=== PATIENT | male | born 1995 | race Caucasian/White ===

== ENCOUNTER 2018-12-15 12:55 | Inpatient (IN) | payer OTHER ==
[~2018-12-15] VITALS: Ht 170.2 cm; Wt 74.9 kg
[2018-12-15] MEDS ORDERED: SOD CHLORIDE 0.9% 1,000 ML IV STA (14:31)
--- NOTE | 2018-12-15 16:52 | ERD ---
ER Documentation Chief Complaint Chief Complaint LUQ abd pain since Thursday; diarrhea only today; hx of pancreatitis HPI 23-year-old male patient with a past medical history of type 1 diabetes and pancreatitis presents to the ED complaining of left upper quadrant abdominal pain since 5 days ago. Reports that he did have 2 alcoholic beverages 1 week ago. States that the pain did happen after he drank. States that he has had some soft stools, one episode of diarrhea, nonimmune quite nonbloody earlier today. Describes his pain is sharp and rates it an 8 out of 10. Reports that he is tried taking Gas-X, Tylenol with some mild relief. Reports that when he ate some fatty foods which consisted of pizza and pastrami sandwiches, it worsened his pain. Denies any nausea, vomiting, pain, shortness of breath, wheezing, constipation, dysuria. Reports that he usually takes about 60 units of insulin per day. ROS All systems reviewed and are negative except as per history of present illness. Allergies Allergies: Coded Allergies: No Known Allergy (Unverified , 12/15/18) PMhx/Soc Medical and Surgical Hx: pt denies Medical Hx, pt denies Surgical Hx Hx Alcohol Use: Yes Hx Substance Use: No Hx Tobacco Use: No Smoking Status: Never smoker FmHx Family History: No coronary disease Physical Exam Vitals Vital Signs Date Temp Pulse Resp B/P (MAP) Pulse Ox O2 O2 Flow FiO2 Time Delivery Rate 12/15/18 98.0 107 20 147/69 99 13:08 (95) Physical Exam Const: [id number], well-nourished. In no acute distress. Head: Atraumatic, normocephalic Eyes: Normal Conjunctiva without injection. No purulent discharge. ENT: Normal external ear, nose. Moist oropharynx without tonsillar exudates. Non-erythematous pharynx. Uvula midline. No drooling. No trismus. Neck: No cervical midline tenderness. Full range of motion. No meningismus. No cervical lymphadenopathy. No JVD. Resp: Clear to auscultation bilaterally. No wheezing, rhonchi, rales, or fuel efficient aircraft designer ckles. No accessory muscle use. No retractions. Cardio: Regular rate and rhythm. No murmurs, rubs or gallops. Abd: Soft, left upper quadrant tenderness, non distended. Normal bowel sounds. No palpable masses. No rebound tenderness. No guarding. Negative McBurney's point. Negative psoas sign. Negative obturator sign. Skin: No petechiae or rashes Back: No midline tenderness. No CVA tenderness. Ext: No cyanosis, or edema. Neur: Awake and alert. Normal gait. Normal coordination. Psych: Normal Mood and Affect Result Diagram: 12/15/18 1442 12/15/18 1442 Results 24 hrs Laboratory Tests Test 12/15/18 14:42 White Blood Count 7.3 10^3/ul Red Blood Count 4.47 10^6/ul Hemoglobin 14.0 g/dl Hematocrit 41.0 % Mean Corpuscular Volume 91.7 fl Mean Corpuscular Hemoglobin 31.3 pg Mean Corpuscular Hemoglobin Concent 34.1 g/dl Red Cell Distribution Width 13.7 % Platelet Count 254 10^3/UL Mean Platelet Volume 9.8 fl Immature Granulocytes % 0.400 % Neutrophils % 63.3 % Lymphocytes % 22.9 % Monocytes % 6.8 % Eosinophils % 5.5 % Basophils % 1.1 % Nucleated Red Blood Cells % 0.0 /100WBC Immature Granulocytes # 0.030 10^3/ul Neutrophils # 4.6 10^3/ul Lymphocytes # 1.7 10^3/ul Monocytes # 0.5 10^3/ul Eosinophils # 0.4 10^3/ul Basophils # 0.1 10^3/ul Nucleated Red Blood Cells # 0.0 10^3/ul Urine Color STRAW Urine Clarity CLEAR Urine pH 6.0 Urine Specific [place] 1.020 Urine Ketones NEGATIVE mg/dL Urine Nitrite NEGATIVE mg/dL Urine Bilirubin NEGATIVE mg/dL Urine Urobilinogen NEGATIVE mg/dL Urine Leukocyte Esterase NEGATIVE Pan/ul Urine Hemoglobin NEGATIVE mg/dL Urine Glucose 3+ mg/dL Urine Total Protein NEGATIVE mg/dl Sodium Level 141 mmol/L Potassium Level 4.2 mmol/L Chloride Level 100 mmol/L Carbon Dioxide Level 31 mmol/L Anion Gap 10 Blood Urea Nitrogen 9 mg/dl Creatinine 0.53 mg/dl Est Glomerular Filtrat Rate mL/min > 60 mL/min Glucose Level 295 mg/dl Calcium Level 9.8 mg/dl Total Bilirubin 1.3 mg/dl Direct Bilirubin 0.00 mg/dl Indirect Bilirubin 1.3 mg/dl Aspartate Amino Transf (AST/SGOT) 103 IU/L Alanine Aminotransferase (ALT/SGPT) 137 IU/L Alkaline Phosphatase 160 IU/L Total Protein 7.0 g/dl Albumin 3.9 g/dl Globulin 3.10 g/dl Albumin/Globulin Ratio 1.25 Lipase 3963 U/L Current Medications Medications Dose Sig/Crow Start Time Status Last (Trade) Ordered Route PRN Stop Time Admin Dose Reason Admin Sodium 1,000 ml @ Q1H STAT 12/15/18 DC 12/15/18 Chloride 1,000 mls/hr IV 14:31 14:52 12/15/18 15:30 Procedures/MDM 23-year-old male patient with a past medical history of type 1 diabetes, marino ncreatitis presents to the ED complaining of left upper quadrant abdominal pain. Patient is afebrile and nontoxic-appearing. Patient was further worked up with CBC, CMP, lipase, UA, gallbladder ultrasound. Patient's pain and symptoms have improved after treatment with 1 L of normal saline. CBC: No leukocytosis. No e/o of systemic infection. No e/o anemia. CMP: No e/o severe acidosis, alkalosis, renal failure, diabetic ketoacidosis, transaminitis noted. Glucose 295. Patient has an insulin pump. Lipase 3963 Urine: No leukocyte esterase, no nitrites, no hematuria. IMPRESSION: Hepatomegaly with diffuse fatty infiltration of the liver.. No evidence of gallstones. Diagnosis: Acute Pancreatitis secondary to alcoholism Gallbladder ultrasound did not show any cholelithiasis or choledocholithiasis. Discussed with my supervising physician, Dr. Shah who agreed with the admission plan. Admission was discussed with the patient and father. Both agreed with the admission plan. Patient did not want any pain medications at this time. Patient hemodynamically stable. Departure Diagnosis: Primary Impression: Pancreatitis Chronicity: acute Pancreatitis type: unspecified pancreatitis type Acute pancreatitis complication: unspecified Qualified Codes: K85.90 - Acute pancreatitis without necrosis or infection, unspecified Condition: LAURENCE Johansen PA-C Dec 15, 2018 16:52
--- NOTE | 2018-12-15 17:36 | EN ---
Date/Time of Note Date/Time of Note DATE: 12/15/18 TIME: 17:35 ER Progress Note I have discussed the patient along with the PA and/or INDUSTRIAL REHABILITATION CONSULTANT provider. I agree with the evaluation and plan of care. Please see their documentation for full ER course and evaluation. In short: Patient presents with abdominal pain, alcohol abuse history Assessment and plan: Laboratory testing consistent with acute pancreatitis. Possibly alcohol related. Gallbladder ultrasound unremarkable. The patient will be admitted for further management and workup. He was given IV fluids and is refusing pain medication. Accepting care team and consultations: I discussed the current laboratory data, diagnostic imaging and emergency care provided. Admitting team: Dr. Barnes Admitting team indication: Insurance directed CHYNA OWEN MD Dec 15, 2018 17:36
[2018-12-15] MEDS ORDERED: ACETAMINOPHEN 325 MG TAB PO PRN ×2 (18:00→18:30)
[2018-12-15] MEDS ORDERED: ONDANSETRON 4 MG INJ IV PRN ×2 (18:00→18:30)
[2018-12-15] MEDS ORDERED: SOD CHLORIDE 0.9% 1,000 ML IV SCH (18:18)
[2018-12-15] MEDS ORDERED: LORAZEPAM 2 MG INJ IV PRN (18:30)
[2018-12-15] MEDS ORDERED: NITROGLYCERIN (SL) 0.4 MG TAB SL PRN (18:30)
[2018-12-15] MEDS ORDERED: hydrALAzine 20 MG INJ IV PRN (18:30)
[2018-12-15] MEDS ORDERED: NACL 0.9% 3 ML SYG IV SCH (18:30)
[2018-12-15] MEDS ORDERED: MAGNESIUM HYDROXIDE 30ML CUP PO PRN (18:30)
[2018-12-15] MEDS ORDERED: morphine 2 MG INJ IV PRN (18:30)
[2018-12-15] MEDS ORDERED: ALBUTEROL/IPRATROPIUM (NEB) 3 ML AMP HHN PRN (18:30)
[2018-12-15] MEDS ORDERED: HYDROCODONE/APAP (5/325) TAB PO PRN (18:30)
[2018-12-15] MEDS ORDERED: DOCUSATE SODIUM 100 MG CAP PO PRN (18:30)
--- NOTE | 2018-12-15 19:42 | HP ---
DATE OF ADMISSION: 12/15/2018 IDENTIFICATION: This is a 23-year-old male. CHIEF COMPLAINT: Abdominal pain. HISTORY OF PRESENT ILLNESS: A 23-year-old male with past medical history of pancreatitis occurring o ne time in 2016, type 1 diabetes, using insulin pump who presents with abdominal pain. The patient d escribes the pain in the left upper quadrant area. It has been going on for the last 4 to 5 days. T he patient does admit to alcoholic beverages x2 that he drank 1 week ago and it appears that his pain did appear to occur shortly after he drank the alcohol. No fevers or chills. No nausea or vomiting . He did have one episode of diarrhea, but no constipation. The patient tried to take some Tylenol and Gas-X at home that only gave minimal relief. When he ate food, however, his pain seemed to get w orse and it also radiated mildly to the back. No chest pain or shortness of breath. When he came in today, he was found on labs with a lipase elevation of 3963 and his indirect bilirubin is slightly h igh 1.3, AST is a little high at 103 and ALT was 137, alkaline phosphatase is 160. Rest of his LFTs were normal. The patient stated when his pancreatitis occurred in 2015, he had to stay hospitalized for 4 to 5 days up in [facility]. At that time, it was thought that his pancreatitis was se condary to alcohol use at that time. PAST MEDICAL HISTORY: As stated above. ALLERGIES: NO KNOWN DRUG ALLERGIES. MEDICATIONS AT HOME: The patient does use insulin pump. PAST SURGICAL HISTORY: None. SOCIAL HISTORY: Again, occasional alcohol use. Denies any IV drug abuse or smoking history. FAMILY HISTORY: Noncontributory. PHYSICAL EXAMINATION: VITAL SIGNS: T-max 98.0, pulse 107, respirations 20, blood pressure 147/69, satting at 99% on room a ir. GENERAL: The patient is lying in bed, answering questions appropriately. No acute distress. Father at bedside. HEENT: Pupils are equal, round and reactive to light. Extraocular muscles are intact. NECK: Supple, no thyromegaly. LUNGS: Clear to auscultation bilaterally. CARDIOVASCULAR: S1 and S2 heard. No rubs or gallops. ABDOMEN: Soft. Mild tenderness to palpation in epigastric area, left upper quadrant area. No rebou nd or guarding. Normal bowel sounds. MUSCULOSKELETAL: No lower extremity edema bilaterally. NEUROLOGIC: No focal deficits. LABORATORY DATA: CBC is normal. Again, the basic metabolic panel is normal, although the glucose is 295. We mentioned the LFT results earlier and lipase again is 3963. UA shows only 3+ glucose, posi tive. The patient had a gallbladder ultrasound performed today that showed hepatomegaly with diffuse fatty liver infiltration, but no gallstones. ASSESSMENT AND PLAN: A 23-year-old male coming in with abdominal pain secondary to pancreatitis whic h is likely secondary to alcohol use. Also, has history of type 1 diabetes. 1. Abdominal pain. Again, likely secondary to alcohol-induced pancreatitis. Lipase 3963. Admit th e patient, keep him n.p.o., give him IV fluids, antiemetic medications. Followup TSH, A1c and lipid panel. Trend his lipase levels as well. Give him pain control medications as needed. 2. Type 1 diabetes. Follow up A1c. For now, the patient will continue to use his insulin pump and we will monitor sugars. If necessary, we will obtain endocrinology consult if his sugars are not con trolled, and/or in service educator. 3. Deep venous thrombosis prophylaxis, heparin subcutaneous. Dictated By: SANJAY VAUGHN Conf#: [id number] DID#: [id number]
[2018-12-15] MEDS ORDERED: INSULIN ASPART [NOVOLOG] 3 ML PEN SC SCH (21:00)
[2018-12-15] MEDS: HEPARIN 5,000 UNIT/1 ML VIAL SC SCH (21:00)
[2018-12-15] MEDS: DEXTROSE 5%-0.45% NACL 1,000 ML IV SCH (21:52)
[2018-12-15 22:06] VITALS: Ht 170.2 cm; Wt 74.9 kg
[2018-12-16] MEDS: ACCU-CHEK XX SCH ×6 (01:23→21:00)
[2018-12-16] MEDS ORDERED: GLUCOSE GEL 15 GRAM TUBE PO PRN ×2 (01:30)
[2018-12-16] MEDS ORDERED: GLUCOSE GEL 15 GRAM TUBE BUCCAL PRN (01:30)
[2018-12-16] MEDS ORDERED: DEXTROSE 50% 50 ML SYRINGE IV PRN (01:30)
[2018-12-16] MEDS ORDERED: GLUCAGON 1 MG INJ IM PRN (01:30)
[2018-12-16] MEDS: DEXTROSE 50% 50 ML SYRINGE IV PRN ×2 (01:53→06:23)
[2018-12-16] MEDS ORDERED: ACCU-CHEK XX SCH (02:00)
[2018-12-16 02:13] VITALS: BP 110/70; PULSE 97; RESP 20
[2018-12-16] MEDS: DEXTROSE 5%-0.45% NACL 1,000 ML IV SCH ×2 (06:57→16:48)
[2018-12-16 08:04] VITALS: BP 109/72; PULSE 86; RESP 16
[2018-12-16] MEDS: HEPARIN 5,000 UNIT/1 ML VIAL SC SCH (09:00)
--- NOTE | 2018-12-16 11:57 | PN ---
Date/Time of Note Date/Time of Note DATE: 12/16/18 TIME: 11:53 Assessment/Plan VTE Prophylaxis Risk score (from Nsg)>0 risk: 0 SCD applied (from Ns): No SCD contraindicated: other Pharmacological prophylaxis: NA/contraindicated Pharm contraindication: low risk/ambulating Lines/Catheters IV Catheter Type (from [facility]): Saline Lock Assessment/Plan Hospital Course S: Patient has less abdominal pain, had some slightly low blood sugars overnight but asymptomatic otherwise. O: VS-see below PHYSICAL EXAMINATION: GENERAL: lying in bed, answering questions appropriately. No acute distress. Father at bedside. HEENT: Pupils are equal, round and reactive to light. Extraocular muscles are intact. NECK: Supple, no thyromegaly. LUNGS: Clear to auscultation bilaterally. CARDIOVASCULAR: S1 and S2 heard. No rubs or gallops. ABDOMEN: Soft. Mild tenderness to palpation in epigastric area, left upper quadrant area. No rebound or guarding. Normal bowel sounds. MUSCULOSKELETAL: No lower extremity edema bilaterally. NEUROLOGIC: No focal deficits. ASSESSMENT AND PLAN: 23-year-old male coming in with abdominal pain secondary to pancreatitis which is likely secondary to alcohol use, with prior history of type 1 diabetes. 1. Abdominal pain -improving, secondary to alcohol-induced pancreatitis. Lipase 3963 -> 1400. -Will continue n.p.o. until this evening and at that time we will cautiously start liquid diet and advance as tolerated at that time -For now continue IV fluids, antiemetic medications - Trend his lipase levels. - pain control medications as needed. 2. Type 1 diabetes A1c = 9.5, sugars in the lower normal range for now - the patient will continue to use his insulin pump and we will monitor sugars. - If necessary, we will obtain endocrinology consult if his sugars are not controlled, and/or nurses educator. Result Diagram: 12/16/18 0435 12/16/18 0435 Results 24hrs Laboratory Tests Test 12/15/18 14:42 12/15/18 21:27 12/16/18 01:17 12/16/18 01:18 White Blood Count 7.3 Red Blood Count 4.47 L Hemoglobin 14.0 Hematocrit 41.0 L Mean Corpuscular 91.7 Volume Mean Corpuscular 31.3 Hemoglobin Mean Corpuscular 34.1 Hemoglobin Concent Red Cell 13.7 Distribution Width Platelet Count 254 Mean Platelet Volume 9.8 Immature 0.400 Granulocytes % Neutrophils % 63.3 Lymphocytes % 22.9 Monocytes % 6.8 Eosinophils % 5.5 Basophils % 1.1 Nucleated Red Blood 0.0 Cells % Immature 0.030 Granulocytes # Neutrophils # 4.6 Lymphocytes # 1.7 Monocytes # 0.5 Eosinophils # 0.4 Basophils # 0.1 Nucleated Red Blood 0.0 Cells # Prothrombin Time 12.5 Prothrombin Time 1.0 Ratio INR International 0.92 Normalized Ratio Activated 24.1 Partial Thromboplast Time Urine Color STRAW Urine Clarity CLEAR Urine pH 6.0 Urine Specific 1.020 [place] Urine Ketones NEGATIVE Urine Nitrite NEGATIVE Urine Bilirubin NEGATIVE Urine Urobilinogen NEGATIVE Urine Leukocyte NEGATIVE Esterase Urine Hemoglobin NEGATIVE Urine Glucose 3+ H Urine Total Protein NEGATIVE Sodium Level 141 Potassium Level 4.2 Chloride Level 100 Carbon Dioxide Level 31 Anion Gap 10 Blood Urea Nitrogen 9 Creatinine 0.53 L Est Glomerular > 60 Filtrat Rate mL/min Glucose Level 295 H Calcium Level 9.8 Total Bilirubin 1.3 Direct Bilirubin 0.00 Indirect Bilirubin 1.3 H Aspartate Amino 103 H Transf (AST/SGOT) Alanine 137 H Aminotransferase (AL T/SGPT) Alkaline Phosphatase 160 H Total Protein 7.0 Albumin 3.9 Globulin 3.10 Albumin/Globulin 1.25 Ratio Lipase 3963 H Free Thyroxine 0.97 Ethyl Alcohol Level < 10.0 H Bedside Glucose 83 53 L 59 L Test 12/16/18 01:46 12/16/18 02:00 12/16/18 04:26 12/16/18 04:35 Bedside Glucose 141 104 84 White Blood Count 7.3 Red Blood Count 4.11 L Hemoglobin 12.6 L Hematocrit 38.4 L Mean Corpuscular 93.4 Volume Mean Corpuscular 30.7 Hemoglobin Mean Corpuscular 32.8 Hemoglobin Concent Red Cell 14.0 Distribution Width Platelet Count 245 Mean Platelet Volume 10.1 Immature 0.400 Granulocytes % Neutrophils % 55.1 Lymphocytes % 26.3 Monocytes % 8.0 Eosinophils % 9.1 H Basophils % 1.1 Nucleated Red Blood 0.0 Cells % Immature 0.030 Granulocytes # Neutrophils # 4.0 Lymphocytes # 1.9 Monocytes # 0.6 Eosinophils # 0.7 H Basophils # 0.1 Nucleated Red Blood 0.0 Cells # Sodium Level 146 H Potassium Level 4.1 Chloride Level 107 Carbon Dioxide Level 34 H Anion Gap 5 Blood Urea Nitrogen 7 Creatinine 0.51 L Est Glomerular > 60 Filtrat Rate mL/min Glucose Level 66 #L Hemoglobin A1c 9.5 H Calcium Level 9.3 Phosphorus Level 5.6 H Magnesium Level 2.2 Total Bilirubin 1.2 Direct Bilirubin 0.00 Indirect Bilirubin 1.2 H Aspartate Amino 105 H Transf (AST/SGOT) Alanine 115 H Aminotransferase (AL T/SGPT) Alkaline Phosphatase 133 H Total Protein 5.9 #L Albumin 3.3 Triglycerides Level 269 H Cholesterol Level 135 LDL Cholesterol, 57 Calculated HDL Cholesterol 24 L Cholesterol/HDL 5.6 Ratio Lipase 1473 H Thyroid Stimulating 1.610 Hormone (TSH) Test 12/16/18 06:21 12/16/18 06:44 12/16/18 06:59 12/16/18 07:01 Bedside Glucose 65 L 95 79 86 Test 12/16/18 09:09 Bedside Glucose 72 Exam/Review of Systems Exam Vitals Vital Signs Date Temp Pulse Resp B/P (MAP) Pulse Ox O2 O2 Flow FiO2 Time Delivery Rate 12/16/18 97.7 86 16 109/72 100 08:04 (84) 12/16/18 Room Air 02:13 Intake and Output 12/15/18 12/15/18 12/16/18 1515:00 23:00 07:00 IntakeIntake Total 200 ml 1700 ml BalanceBalance 200 ml 1700 ml Results Results 24hrs Laboratory Tests Test 12/15/18 14:42 12/15/18 21:27 12/16/18 01:17 12/16/18 01:18 White Blood Count 7.3 Red Blood Count 4.47 L Hemoglobin 14.0 Hematocrit 41.0 L Mean Corpuscular 91.7 Volume Mean Corpuscular 31.3 Hemoglobin Mean Corpuscular 34.1 Hemoglobin Concent Red Cell 13.7 Distribution Width Platelet Count 254 Mean Platelet Volume 9.8 Immature 0.400 Granulocytes % Neutrophils % 63.3 Lymphocytes % 22.9 Monocytes % 6.8 Eosinophils % 5.5 Basophils % 1.1 Nucleated Red Blood 0.0 Cells % Immature 0.030 Granulocytes # Neutrophils # 4.6 Lymphocytes # 1.7 Monocytes # 0.5 Eosinophils # 0.4 Basophils # 0.1 Nucleated Red Blood 0.0 Cells # Prothrombin Time 12.5 Prothrombin Time 1.0 Ratio INR International 0.92 Normalized Ratio Activated 24.1 Partial Thromboplast Time Urine Color STRAW Urine Clarity CLEAR Urine pH 6.0 Urine Specific 1.020 [place] Urine Ketones NEGATIVE Urine Nitrite NEGATIVE Urine Bilirubin NEGATIVE Urine Urobilinogen NEGATIVE Urine Leukocyte NEGATIVE Esterase Urine Hemoglobin NEGATIVE Urine Glucose 3+ H Urine Total Protein NEGATIVE Sodium Level 141 Potassium Level 4.2 Chloride Level 100 Carbon Dioxide Level 31 Anion Gap 10 Blood Urea Nitrogen 9 Creatinine 0.53 L Est Glomerular > 60 Filtrat Rate mL/min Glucose Level 295 H Calcium Level 9.8 Total Bilirubin 1.3 Direct Bilirubin 0.00 Indirect Bilirubin 1.3 H Aspartate Amino 103 H Transf (AST/SGOT) Alanine 137 H Aminotransferase (AL T/SGPT) Alkaline Phosphatase 160 H Total Protein 7.0 Albumin 3.9 Globulin 3.10 Albumin/Globulin 1.25 Ratio Lipase 3963 H Free Thyroxine 0.97 Ethyl Alcohol Level < 10.0 H Bedside Glucose 83 53 L 59 L Test 12/16/18 01:46 12/16/18 02:00 12/16/18 04:26 12/16/18 04:35 Bedside Glucose 141 104 84 White Blood Count 7.3 Red Blood Count 4.11 L Hemoglobin 12.6 L Hematocrit 38.4 L Mean Corpuscular 93.4 Volume Mean Corpuscular 30.7 Hemoglobin Mean Corpuscular 32.8 Hemoglobin Concent Red Cell 14.0 Distribution Width Platelet Count 245 Mean Platelet Volume 10.1 Immature 0.400 Granulocytes % Neutrophils % 55.1 Lymphocytes % 26.3 Monocytes % 8.0 Eosinophils % 9.1 H Basophils % 1.1 Nucleated Red Blood 0.0 Cells % Immature 0.030 Granulocytes # Neutrophils # 4.0 Lymphocytes # 1.9 Monocytes # 0.6 Eosinophils # 0.7 H Basophils # 0.1 Nucleated Red Blood 0.0 Cells # Sodium Level 146 H Potassium Level 4.1 Chloride Level 107 Carbon Dioxide Level 34 H Anion Gap 5 Blood Urea Nitrogen 7 Creatinine 0.51 L Est Glomerular > 60 Filtrat Rate mL/min Glucose Level 66 #L Hemoglobin A1c 9.5 H Calcium Level 9.3 Phosphorus Level 5.6 H Magnesium Level 2.2 Total Bilirubin 1.2 Direct Bilirubin 0.00 Indirect Bilirubin 1.2 H Aspartate Amino 105 H Transf (AST/SGOT) Alanine 115 H Aminotransferase (AL T/SGPT) Alkaline Phosphatase 133 H Total Protein 5.9 #L Albumin 3.3 Triglycerides Level 269 H Cholesterol Level 135 LDL Cholesterol, 57 Calculated HDL Cholesterol 24 L Cholesterol/HDL 5.6 Ratio Lipase 1473 H Thyroid Stimulating 1.610 Hormone (TSH) Test 12/16/18 06:21 12/16/18 06:44 12/16/18 06:59 12/16/18 07:01 Bedside Glucose 65 L 95 79 86 Test 12/16/18 09:09 Bedside Glucose 72 Medications Medication Current Medications IV Flush (NS 3 ml) 3 ml PER PROTOCOL IV ; Start 12/15/18 at 18:30 Ondansetron HCl (Zofran Inj) 4 mg Q6H PRN IV NAUSEA/VOMITING; Start 12/15/18 at 18:30 Acetaminophen (Tylenol Tab) 650 mg Q6H PRN PO .PAIN 1-3 OR TEMP; Start 12/15/18 at 18:30 Acetaminophen/ Hydrocodone Bitart ([place]an (5/325)) 1 tab Q6H PRN PO .MOD PAIN 4- 6; Start 12/15/18 at 18:30 Morphine Sulfate (morphine) 2 mg Q4H PRN IV .SEVERE PAIN 7-10 Last administered on 12/15/18at 23:51; Admin Dose 2 MG; Start 12/15/18 at 18:30 Docusate Sodium (Colace) 100 mg Q12H PRN PO .CONSTIPATION; Start 12/15/18 at 18:30 Magnesium Hydroxide (Milk Of Mag) 30 ml DAILY PRN PO .CONSTIPATION; Start at 18:30 Heparin Sodium (Porcine) (Heparin (5000 Units/1ml)) 5,000 unit Q12 SC ; Start 12/15/18 at 21:00 Lorazepam (Ativan) 0.5 mg Q6H PRN IV ANXIETY; Start 12/15/18 at 18:30 Albuterol/ Ipratropium (Duoneb) 3 ml Q4H RESP THERAPY PRN HHN SHORTNESS OF BREATH; Start 12/15/18 at 18:30 Hydralazine HCl (Apresoline) 10 mg Q6H PRN IV ELEVATED BLOOD PRESSURE; Start 12/15/18 at 18:30 Nitroglycerin (Nitroglycerin (Sl Tab) 0.4 Mg) 1 tab Q5M PRN SL ANGINA; Start 12/15/18 at 18:30 Diagnostic Test (Pha) (Accu-Chek) 1 ea Q4 XX Last administered on 12/16/18at 05:19; Admin Dose 1 EA; Start 12/16/18 at 01:00 Dextrose/Sodium Chloride 1,000 ml @ 100 mls/hr Q10H IV Last administered on 12/16/18at 06:57; Admin Dose 100 MLS/HR; Start 12/15/18 at 22:00 Miscellaneous Information 1 ea NOTE XX ; Start 12/16/18 at 01:30 Glucose (Glutose) 15 gm Q15M PRN PO DECREASED GLUCOSE; Start 12/16/18 at 01:30 Glucose (Glutose) 22.5 gm Q15M PRN PO DECREASED GLUCOSE; Start 12/16/18 at 01:30 Dextrose (D50w Syringe) 25 ml Q15M PRN IV DECREASED GLUCOSE Last administered on 12/16/18at 06:23; Admin Dose 25 ML; Start 12/16/18 at 01:30 Dextrose (D50w Syringe) 50 ml Q15M PRN IV DECREASED GLUCOSE; Start 12/16/18 at 01:30 Glucagon (Glucagen) 1 mg Q15M PRN IM DECREASED GLUCOSE; Start 12/16/18 at 01:30 Glucose (Glutose) 15 gm Q15M PRN BUCCAL DECREASED GLUCOSE; Start 12/16/18 at 01:30 SANJAY CALDERON Dec 16, 2018 11:57
[2018-12-16 15:00] VITALS: BP 118/60; PULSE 80; RESP 18
[2018-12-16] MEDS: morphine 2 MG INJ IV PRN (16:50)
[2018-12-16] MEDS: INSULIN PUMP SC SCH ×2 (17:17→21:00)
[2018-12-16 20:02] VITALS: BP 123/79; PULSE 89; RESP 18
[2018-12-17] MEDS: ACCU-CHEK XX SCH ×6 (01:00→21:00)
[2018-12-17 01:53] VITALS: BP 111/75; PULSE 75; RESP 18
[2018-12-17] MEDS: INSULIN PUMP SC SCH ×6 (02:01→21:00)
[2018-12-17] MEDS: DEXTROSE 5%-0.45% NACL 1,000 ML IV SCH (02:53)
[2018-12-17] MEDS: morphine 2 MG INJ IV PRN (05:30)
[2018-12-17 07:36] VITALS: BP 104/71; PULSE 77; RESP 18
--- NOTE | 2018-12-17 12:05 | PN ---
Date/Time of Note Date/Time of Note DATE: 12/17/18 TIME: 12:03 Assessment/Plan VTE Prophylaxis Risk score (from Nsg)>0 risk: 0 SCD applied (from Nsg): No SCD contraindicated: other Pharmacological prophylaxis: NA/contraindicated Pharm contraindication: low risk/ambulating Lines/Catheters IV Catheter Type (from Nrsg): Peripheral IV Urinary Cath still in place: No Assessment/Plan Hospital Course S: Patient tolerated liquid diet yesterday and soft diet this morning although he did have some mild low back pain after eating that today. Denies any fevers or chills. LFTs noted to be slightly more elevated today. O: VS-see below PHYSICAL EXAMINATION: GENERAL: lying in bed, answering questions appropriately. No acute distress. Father at bedside. HEENT: Pupils are equal, round and reactive to light. Extraocular muscles are intact. NECK: Supple, no thyromegaly. LUNGS: Clear to auscultation bilaterally. CARDIOVASCULAR: S1 and S2 heard. No rubs or gallops. ABDOMEN: Soft. Mild tenderness to palpation in epigastric area, left upper quadrant area. No rebound or guarding. Normal bowel sounds. MUSCULOSKELETAL: No lower extremity edema bilaterally. NEUROLOGIC: No focal deficits. ASSESSMENT AND PLAN: 23-year-old male coming in with abdominal pain secondary to pancreatitis which is likely secondary to alcohol use, with prior history of type 1 diabetes. 1. Abdominal pain -improving, secondary to alcohol-induced pancreatitis. Lipase 3963 -> 1400- >1200 -Will keep patient on liquid diet all day today and switch IV fluids normal saline at 100 cc an hour -Continue antiemetic medications -Continue to trend his lipase levels. -We will check hepatitis acute panel and continue pain control medications as needed. 2. Type 1 diabetes A1c = 9.5, sugars stable, seen by rn diabetes educator yesterday, still on insulin pump - the patient will continue to use his insulin pump and we will monitor sugars. - Monitor sugars Result Diagram: 12/17/18 0429 12/17/18 0429 Results 24hrs Laboratory Tests Test 12/16/18 13:00 12/16/18 17:10 12/16/18 21:00 12/17/18 01:15 Bedside Glucose 158 247 H 131 184 Test 12/17/18 04:29 12/17/18 05:08 12/17/18 08:58 White Blood Count 4.7 #L Red Blood Count 3.68 L Hemoglobin 11.6 L Hematocrit 34.6 L Mean Corpuscular 94.0 Volume Mean Corpuscular 31.5 Hemoglobin Mean Corpuscular 33.5 Hemoglobin Concent Red Cell 13.8 Distribution Width Platelet Count 219 Mean Platelet Volume 10.1 Immature 0.400 Granulocytes % Neutrophils % 44.6 Lymphocytes % 34.3 Monocytes % 7.9 Eosinophils % 11.3 H Basophils % 1.5 Nucleated Red Blood 0.0 Cells % Immature 0.020 Granulocytes # Neutrophils # 2.1 Lymphocytes # 1.6 Monocytes # 0.4 Eosinophils # 0.5 Basophils # 0.1 Nucleated Red Blood 0.0 Cells # Sodium Level 141 Potassium Level 3.8 Chloride Level 105 Carbon Dioxide Level 32 H Anion Gap 4 L Blood Urea Nitrogen 7 Creatinine 0.59 L Est Glomerular > 60 Filtrat Rate mL/min Glucose Level 128 # Calcium Level 8.7 Total Bilirubin 1.6 H Direct Bilirubin 0.00 Indirect Bilirubin 1.6 H Aspartate Amino 347 #H Transf (AST/SGOT) Alanine 182 H Aminotransferase (AL T/SGPT) Alkaline Phosphatase 135 H Total Protein 5.5 L Albumin 2.9 L Globulin 2.60 Albumin/Globulin 1.11 Ratio Lipase 1290 H Bedside Glucose 154 98 Exam/Review of Systems Exam Vitals Vital Signs Date Temp Pulse Resp B/P (MAP) Pulse Ox O2 O2 Flow FiO2 Time Delivery Rate 12/17/18 97.4 77 18 104/71 99 07:36 (82) 12/16/18 Room Air 02:13 Intake and Output 12/16/18 12/16/18 12/17/18 1414:59 22:59 06:59 IntakeIntake Total 1920 ml 1200 ml BalanceBalance 1920 ml 1200 ml Results Results 24hrs Laboratory Tests Test 12/16/18 13:00 12/16/18 17:10 12/16/18 21:00 12/17/18 01:15 Bedside Glucose 158 247 H 131 184 Test 12/17/18 04:29 12/17/18 05:08 12/17/18 08:58 White Blood Count 4.7 #L Red Blood Count 3.68 L Hemoglobin 11.6 L Hematocrit 34.6 L Mean Corpuscular 94.0 Volume Mean Corpuscular 31.5 Hemoglobin Mean Corpuscular 33.5 Hemoglobin Concent Red Cell 13.8 Distribution Width Platelet Count 219 Mean Platelet Volume 10.1 Immature 0.400 Granulocytes % Neutrophils % 44.6 Lymphocytes % 34.3 Monocytes % 7.9 Eosinophils % 11.3 H Basophils % 1.5 Nucleated Red Blood 0.0 Cells % Immature 0.020 Granulocytes # Neutrophils # 2.1 Lymphocytes # 1.6 Monocytes # 0.4 Eosinophils # 0.5 Basophils # 0.1 Nucleated Red Blood 0.0 Cells # Sodium Level 141 Potassium Level 3.8 Chloride Level 105 Carbon Dioxide Level 32 H Anion Gap 4 L Blood Urea Nitrogen 7 Creatinine 0.59 L Est Glomerular > 60 Filtrat Rate mL/min Glucose Level 128 # Calcium Level 8.7 Total Bilirubin 1.6 H Direct Bilirubin 0.00 Indirect Bilirubin 1.6 H Aspartate Amino 347 #H Transf (AST/SGOT) Alanine 182 H Aminotransferase (AL T/SGPT) Alkaline Phosphatase 135 H Total Protein 5.5 L Albumin 2.9 L Globulin 2.60 Albumin/Globulin 1.11 Ratio Lipase 1290 H Bedside Glucose 154 98 Medications Medication Current Medications IV Flush (NS 3 ml) 3 ml PER PROTOCOL IV ; Start 12/15/18 at 18:30 Ondansetron HCl (Zofran Inj) 4 mg Q6H PRN IV NAUSEA/VOMITING; Start 12/15/18 at 18:30 Acetaminophen (Tylenol Tab) 650 mg Q6H PRN PO .PAIN 1-3 OR TEMP; Start 12/15/18 at 18:30 Acetaminophen/ Hydrocodone Bitart ([place] (5/325)) 1 tab Q6H PRN PO .MOD PAIN 4- 6 Last administered on 12/16/18at 12:57; Admin Dose 1 TAB; Start 12/15/18 at 18:30 Docusate Sodium (Colace) 100 mg Q12H PRN PO .CONSTIPATION; Start 12/15/18 at 18:30 Magnesium Hydroxide (Milk Of Mag) 30 ml DAILY PRN PO .CONSTIPATION; Start 12/15/18 at 18:30 Lorazepam (Ativan) 0.5 mg Q6H PRN IV ANXIETY; Start 12/15/18 at 18:30 Albuterol/ Ipratropium (Duoneb) 3 ml Q4H RESP THERAPY PRN HHN SHORTNESS OF BREATH; Start 12/15/18 at 18:30 Hydralazine HCl (Apresoline) 10 mg Q6H PRN IV ELEVATED BLOOD PRESSURE; Start 12/15/18 at 18:30 Nitroglycerin (Nitroglycerin (Sl Tab) 0.4 Mg) 1 tab Q5M PRN SL ANGINA; Start 12/15/18 at 18:30 Diagnostic Test (Pha) (Accu-Chek) 1 ea Q4 XX Last administered on 12/17/18at 09:00; Admin Dose 1 EA; Start 12/16/18 at 01:00 Dextrose/Sodium Chloride 1,000 ml @ 100 mls/hr Q10H IV Last administered on 12/17/18at 02:53; Admin Dose 100 MLS/HR; Start 12/15/18 at 22:00 Miscellaneous Information 1 ea NOTE XX ; Start 12/16/18 at 01:30 Glucose (Glutose) 15 gm Q15M PRN PO DECREASED GLUCOSE; Start 12/16/18 at 01:30 Glucose (Glutose) 22.5 gm Q15M PRN PO DECREASED GLUCOSE; Start 12/16/18 at 01:30 Dextrose (D50w Syringe) 25 ml Q15M PRN IV DECREASED GLUCOSE Last administered on 12/16/18at 06:23; Admin Dose 25 ML; Start 12/16/18 at 01:30 Dextrose (D50w Syringe) 50 ml Q15M PRN IV DECREASED GLUCOSE; Start 12/16/18 at 01:30 Glucagon (Glucagen) 1 mg Q15M PRN IM DECREASED GLUCOSE; Start 12/16/18 at 01:30 Glucose (Glutose) 15 gm Q15M PRN BUCCAL DECREASED GLUCOSE; Start 12/16/18 at 01:30 Morphine Sulfate (morphine) 1 mg Q4H PRN IV .SEVERE PAIN 7-10 Last administered on 12/17/18at 05:30; Admin Dose 1 MG; Start 12/16/18 at 14:30 Insulin Pump (Patient'S Own Insulin Pump) Q4H Q4 SC Last administered on 12/17/18at 09:00; Admin Dose 4 UNIT; Start 12/16/18 at 17:00 SANJAY CALDERON Dec 17, 2018 12:05
[2018-12-17] MEDS: SOD CHLORIDE 0.9% 1,000 ML IV SCH ×2 (12:33→22:19)
[2018-12-17 14:02] VITALS: BP 121/98; PULSE 93; RESP 18
[2018-12-17 19:37] VITALS: BP 127/77; PULSE 71; RESP 18
[2018-12-18] MEDS: INSULIN PUMP SC SCH ×6 (01:00→21:35)
[2018-12-18] MEDS: ACCU-CHEK XX SCH ×6 (01:00→21:31)
[2018-12-18 03:03] VITALS: BP 117/75; PULSE 73; RESP 18
[2018-12-18 07:36] VITALS: BP 116/82; PULSE 63; RESP 17
[2018-12-18] MEDS: SOD CHLORIDE 0.9% 1,000 ML IV SCH ×2 (08:57→17:55)
--- NOTE | 2018-12-18 12:57 | CONS ---
Assessment/Plan Assessment/Plan Hospital Course (Demo Recall) Summary Assessment and Plan: Assessment: Acute pancreatitis Transaminitis Indirect hyperbilirubinemia Type 1 diabetes Plan: Hepatitis serology for A/B/C negative. Will obtain MRCP further assess reasons for acute elevation in LFTs Continue clear liquid plan to increase diet pending results of MRCP Trend LFTs Patient seen in collaboration with Dr Abreu CC: DENISHA ABREU MD ; Consultation Date/Type/Reason Admit Date/Time Dec 15, 2018 at 17:35 Date of Consultation: Dec 18, 2018 Type of Consult GI Reason for Consultation Elevated LFTs EtOH induced pancreatitis Date/Time of Note DATE: 12/18/18 TIME: 12:40 Hx of Present Illness This is a 23-year-old male with past medical history of type 1 diabetes and pancreatitis in 2016 secondary to alcohol use since then patient notes decrease in alcohol use. States he had two 8 ounce beers over the past 2 weeks. Patient noted upper abdominal pain worse to the left he came in to the ED for further evaluation here he was diagnosed with pancreatitis and noted elevated lipase 3963 since admission lipase has been decreasing however sharp increase in LFTs has been noted and a indirect hyperbilirubinemia. GI has been consulted for further evaluation. A gallbladder ultrasound on admission revealed hepatomegaly with diffuse fatty liver no evidence of gallstones and common bile duct measuring 4 mm, additionally hepatitis panel is negative for hepatitis A/B/C. At time evaluation patient feels well denies pain but does note minimal left upper quadrant pain with palpation as well as worsening pain to the right upper quadrant with deep palpation. Discussed plan with both patient and father for MRCP for further evaluation regarding elevated LFTs both verbalized understandin g are in agreement Review of Systems: A 12 system, review was conducted and is negative except as noted in the HPI or here. Past Medical History Medications Current Medications IV Flush (NS 3 ml) 3 ml PER PROTOCOL IV ; Start 12/15/18 at 18:30 Ondansetron HCl (Zofran Inj) 4 mg Q6H PRN IV NAUSEA/VOMITING; Start 12/15/18 at 18:30 Acetaminophen (Tylenol Tab) 650 mg Q6H PRN PO .PAIN 1-3 OR TEMP; Start 12/15/18 at 18:30 Acetaminophen/ Hydrocodone Bitart ([place] (5/325)) 1 tab Q6H PRN PO .MOD PAIN 4- 6 Last administered on 12/16/18at 12:57; Admin Dose 1 TAB; Start 12/15/18 at 18:30 Docusate Sodium (Colace) 100 mg Q12H PRN PO .CONSTIPATION; Start 12/15/18 at 18:30 Magnesium Hydroxide (Milk Of Mag) 30 ml DAILY PRN PO .CONSTIPATION; Start at 18:30 Lorazepam (Ativan) 0.5 mg Q6H PRN IV ANXIETY; Start 12/15/18 at 18:30 Albuterol/ Ipratropium (Duoneb) 3 ml Q4H RESP THERAPY PRN HHN SHORTNESS OF BREATH; Start 12/15/18 at 18:30 Hydralazine HCl (Apresoline) 10 mg Q6H PRN IV ELEVATED BLOOD PRESSURE; Start 12/15/18 at 18:30 Nitroglycerin (Nitroglycerin (Sl Tab) 0.4 Mg) 1 tab Q5M PRN SL ANGINA; Start 12/15/18 at 18:30 Diagnostic Test (Pha) (Accu-Chek) 1 ea Q4 XX Last administered on 12/18/18at 09:03; Admin Dose 1 EA; Start 12/16/18 at 01:00 Miscellaneous Information 1 ea NOTE XX ; Start 12/16/18 at 01:30 Glucose (Glutose) 15 gm Q15M PRN PO DECREASED GLUCOSE; Start 12/16/18 at 01:30 Glucose (Glutose) 22.5 gm Q15M PRN PO DECREASED GLUCOSE; Start 12/16/18 at 01:30 Dextrose (D50w Syringe) 25 ml Q15M PRN IV DECREASED GLUCOSE Last administered on 12/16/18at 06:23; Admin Dose 25 ML; Start 12/16/18 at 01:30 Dextrose (D50w Syringe) 50 ml Q15M PRN IV DECREASED GLUCOSE; Start 12/16/18 at 01:30 Glucagon (Glucagen) 1 mg Q15M PRN IM DECREASED GLUCOSE; Start 12/16/18 at 01:30 Glucose (Glutose) 15 gm Q15M PRN BUCCAL DECREASED GLUCOSE; Start 12/16/18 at 01:30 Morphine Sulfate (morphine) 1 mg Q4H PRN IV .SEVERE PAIN 7-10 Last administered on 12/17/18at 05:30; Admin Dose 1 MG; Start 12/16/18 at 14:30 Insulin Pump (Patient'S Own Insulin Pump) Q4H Q4 SC Last administered on 12/17/18at 18:02; Admin Dose 3 UNIT; Start 12/16/18 at 17:00 Sodium Chloride 1,000 ml @ 100 mls/hr Q10H IV Last administered on 12/18/18at 08:57; Admin Dose 100 MLS/HR; Start 12/17/18 at 12:30 Allergies: Coded Allergies: No Known Allergy (Unverified , 12/15/18) Social History Smoking Status: Unknown if ever smoked Exam/Review of Systems Exam Vitals Vital Signs Date Temp Pulse Resp B/P (MAP) Pulse Ox O2 O2 Flow FiO2 Time Delivery Rate 12/18/18 97.7 63 17 116/82 97 07:36 (93) 12/16/18 Room Air 02:13 Intake and Output 12/17/18 12/17/18 12/18/18 1515:00 23:00 07:00 IntakeIntake Total 650 ml 1000 ml 1180 ml BalanceBalance 650 ml 1000 ml 1180 ml Exam PHYSICAL EXAMINATION: GENERAL: Well developed, well nourished, alert & oriented x 3, in no acute distress SKIN: No lesions EYES: Pupils equal reactive to light, no discharge. EARS/NOSE AND THROAT: Ears normal, nose normal. NECK: Supple, no masses, thyroid normal CHEST: Inspection within normal limits. CARDIOVASCULAR: Heart: Regular rate and rhythm RESPIRATORY: Lungs clear to auscultation GASTROINTESTINAL AND LIVER: Abdomen: Soft, non tenderness (RUQ/LUQ discomfort with deep palpation), non-distended, no hernias, no masses, no organomegaly, no ascites, no guarding, no rebound tenderness, normoactive bowel sounds. Rectal: Deferred. EXTREMITIES: No cyanosis, clubbing or edema. Results Result Diagram: 12/18/18 0455 12/18/18 0455 Results 24hrs Laboratory Tests Test 12/17/18 13:01 12/17/18 17:59 12/17/18 20:53 12/18/18 01:11 Bedside Glucose 139 214 104 85 Test 12/18/18 04:55 12/18/18 05:17 12/18/18 09:00 12/18/18 09:17 White Blood Count 3.5 #L Red Blood Count 3.89 L Hemoglobin 12.0 L Hematocrit 36.5 L Mean Corpuscular 93.8 Volume Mean Corpuscular 30.8 Hemoglobin Mean Corpuscular 32.9 Hemoglobin Concent Red Cell 13.5 Distribution Width Platelet Count 230 Mean Platelet Volume 10.7 H Immature 0.300 Granulocytes % Neutrophils % 37.4 L Lymphocytes % 43.2 Monocytes % 8.4 Eosinophils % 8.4 H Basophils % 2.3 H Nucleated Red Blood 0.0 Cells % Immature 0.010 Granulocytes # Neutrophils # 1.3 L Lymphocytes # 1.5 Monocytes # 0.3 Eosinophils # 0.3 Basophils # 0.1 Nucleated Red Blood 0.0 Cells # Sodium Level 147 H Potassium Level 3.9 Chloride Level 108 Carbon Dioxide Level 31 Anion Gap 8 Blood Urea Nitrogen 6 L Creatinine 0.57 L Est Glomerular > 60 Filtrat Rate mL/min Glucose Level 67 #L Calcium Level 9.2 Total Bilirubin 1.9 H Direct Bilirubin 0.00 Indirect Bilirubin 1.9 H Aspartate Amino 610 #H Transf (AST/SGOT) Alanine 285 H Aminotransferase (AL T/SGPT) Alkaline Phosphatase 197 H Total Protein 6.3 Albumin 3.4 Globulin 2.90 Albumin/Globulin 1.17 Ratio Lipase 1150 H Bedside Glucose 71 67 L 74 Test 12/18/18 09:40 12/18/18 09:57 Bedside Glucose 87 87 Medications Medication Current Medications IV Flush (NS 3 ml) 3 ml PER PROTOCOL IV ; Start 12/15/18 at 18:30 Ondansetron HCl (Zofran Inj) 4 mg Q6H PRN IV NAUSEA/VOMITING; Start 12/15/18 at 18:30 Acetaminophen (Tylenol Tab) 650 mg Q6H PRN PO .PAIN 1-3 OR TEMP; Start 12/15/18 at 18:30 Acetaminophen/ Hydrocodone Bitart ([place] (5/325)) 1 tab Q6H PRN PO .MOD PAIN 4- 6 Last administered on 12/16/18at 12:57; Admin Dose 1 TAB; Start 12/15/18 at 18:30 Docusate Sodium (Colace) 100 mg Q12H PRN PO .CONSTIPATION; Start 12/15/18 at 18:30 Magnesium Hydroxide (Milk Of Mag) 30 ml DAILY PRN PO .CONSTIPATION; Start 12/15/18 at 18:30 Lorazepam (Ativan) 0.5 mg Q6H PRN IV ANXIETY; Start 12/15/18 at 18:30 Albuterol/ Ipratropium (Duoneb) 3 ml Q4H RESP THERAPY PRN HHN SHORTNESS OF BREATH; Start 12/15/18 at 18:30 Hydralazine HCl (Apresoline) 10 mg Q6H PRN IV ELEVATED BLOOD PRESSURE; Start 12/15/18 at 18:30 Nitroglycerin (Nitroglycerin (Sl Tab) 0.4 Mg) 1 tab Q5M PRN SL ANGINA; Start 12/15/18 at 18:30 Diagnostic Test (Pha) (Accu-Chek) 1 ea Q4 XX Last administered on 12/18/18at 09:03; Admin Dose 1 EA; Start 12/16/18 at 01:00 Miscellaneous Information 1 ea NOTE XX ; Start 12/16/18 at 01:30 Glucose (Glutose) 15 gm Q15M PRN PO DECREASED GLUCOSE; Start 12/16/18 at 01:30 Glucose (Glutose) 22.5 gm Q15M PRN PO DECREASED GLUCOSE; Start 12/16/18 at 01:30 Dextrose (D50w Syringe) 25 ml Q15M PRN IV DECREASED GLUCOSE Last administered on 12/16/18at 06:23; Admin Dose 25 ML; Start 12/16/18 at 01:30 Dextrose (D50w Syringe) 50 ml Q15M PRN IV DECREASED GLUCOSE; Start 12/16/18 at 01:30 Glucagon (Glucagen) 1 mg Q15M PRN IM DECREASED GLUCOSE; Start 12/16/18 at 01:30 Glucose (Glutose) 15 gm Q15M PRN BUCCAL DECREASED GLUCOSE; Start 12/16/18 at 01:30 Morphine Sulfate (morphine) 1 mg Q4H PRN IV .SEVERE PAIN 7-10 Last administered on 12/17/18at 05:30; Admin Dose 1 MG; Start 12/16/18 at 14:30 Insulin Pump (Patient'S Own Insulin Pump) Q4H Q4 SC Last administered on 12/17/18at 18:02; Admin Dose 3 UNIT; Start 12/16/18 at 17:00 Sodium Chloride 1,000 ml @ 100 mls/hr Q10H IV Last administered on 12/18/18at 08:57; Admin Dose 100 MLS/HR; Start 12/17/18 at 12:30 ALEXX HARRIS Dec 18, 2018 12:50
--- NOTE | 2018-12-18 13:46 | PN ---
Date/Time of Note Date/Time of Note DATE: 12/18/18 TIME: 13:43 Assessment/Plan VTE Prophylaxis Risk score (from Nsg)>0 risk: 0 SCD applied (from Nsg): No SCD contraindicated: other Pharmacological prophylaxis: NA/contraindicated Pharm contraindication: low risk/ambulating Lines/Catheters IV Catheter Type (from Nrsg): Peripheral IV Urinary Cath still in place: No Assessment/Plan Hospital Course S: Patient still tolerating liquid diet with minimal to no pain symptoms. Because of more elevated AST and ALT results this morning, seen by GI team earlier today. MRCP is now pending. O: VS-see below PHYSICAL EXAMINATION: GENERAL: lying in bed, answering questions appropriately. No acute distress. Father at bedside. HEENT: Pupils are equal, round and reactive to light. Extraocular muscles are intact. NECK: Supple, no thyromegaly. LUNGS: Clear to auscultation bilaterally. CARDIOVASCULAR: S1 and S2 heard. No rubs or gallops. ABDOMEN: Soft. Mild tenderness to palpation in epigastric area, left upper quadrant area. No rebound or guarding. Normal bowel sounds. MUSCULOSKELETAL: No lower extremity edema bilaterally. NEUROLOGIC: No focal deficits. ASSESSMENT AND PLAN: 23-year-old male coming in with abdominal pain secondary to pancreatitis which is likely secondary to alcohol use, with prior history of type 1 diabetes. 1. Abdominal pain -improving, secondary to alcohol-induced pancreatitis. Lipase 3963 -> 1400- >1200 -> 1100. However patient also with elevated LFTs, specifically AST 600, ALT 300 range today, the highest it has been. Slight elevation in total bilirubin but direct is normal. Acute hepatitis panel was negative -Appreciate GI consult, follow-up MRCP results, monitor LFTs, continue liquid diet for now, follow-up lipase in the a.m. -Continue antiemetic medications 2. Type 1 diabetes A1c = 9.5, sugars stable, seen by health promotion educator, still on insulin pump - the patient will continue to use his insulin pump and we will monitor sugars. Result Diagram: 12/18/18 0455 12/18/18 0455 Results 24hrs Laboratory Tests Test 12/17/18 17:59 12/17/18 20:53 12/18/18 01:11 12/18/18 04:55 Bedside Glucose 214 104 85 White Blood Count 3.5 #L Red Blood Count 3.89 L Hemoglobin 12.0 L Hematocrit 36.5 L Mean Corpuscular 93.8 Volume Mean Corpuscular 30.8 Hemoglobin Mean Corpuscular 32.9 Hemoglobin Concent Red Cell 13.5 Distribution Width Platelet Count 230 Mean Platelet Volume 10.7 H Immature 0.300 Granulocytes % Neutrophils % 37.4 L Lymphocytes % 43.2 Monocytes % 8.4 Eosinophils % 8.4 H Basophils % 2.3 H Nucleated Red Blood 0.0 Cells % Immature 0.010 Granulocytes # Neutrophils # 1.3 L Lymphocytes # 1.5 Monocytes # 0.3 Eosinophils # 0.3 Basophils # 0.1 Nucleated Red Blood 0.0 Cells # Sodium Level 147 H Potassium Level 3.9 Chloride Level 108 Carbon Dioxide Level 31 Anion Gap 8 Blood Urea Nitrogen 6 L Creatinine 0.57 L Est Glomerular > 60 Filtrat Rate mL/min Glucose Level 67 #L Calcium Level 9.2 Total Bilirubin 1.9 H Direct Bilirubin 0.00 Indirect Bilirubin 1.9 H Aspartate Amino 610 #H Transf (AST/SGOT) Alanine 285 H Aminotransferase (AL T/SGPT) Alkaline Phosphatase 197 H Total Protein 6.3 Albumin 3.4 Globulin 2.90 Albumin/Globulin 1.17 Ratio Lipase 1150 H Test 12/18/18 05:17 12/18/18 09:00 12/18/18 09:17 12/18/18 09:40 Bedside Glucose 71 67 L 74 87 Test 12/18/18 09:57 12/18/18 13:20 Bedside Glucose 87 114 Exam/Review of Systems Exam Vitals Vital Signs Date Temp Pulse Resp B/P (MAP) Pulse Ox O2 O2 Flow FiO2 Time Delivery Rate 12/18/18 97.7 63 17 116/82 97 07:36 (93) 12/16/18 Room Air 02:13 Intake and Output 12/17/18 12/17/18 12/18/18 1515:00 23:00 07:00 IntakeIntake Total 650 ml 1000 ml 1180 ml BalanceBalance 650 ml 1000 ml 1180 ml Results Results 24hrs Laboratory Tests Test 12/17/18 17:59 12/17/18 20:53 12/18/18 01:11 12/18/18 04:55 Bedside Glucose 214 104 85 White Blood Count 3.5 #L Red Blood Count 3.89 L Hemoglobin 12.0 L Hematocrit 36.5 L Mean Corpuscular 93.8 Volume Mean Corpuscular 30.8 Hemoglobin Mean Corpuscular 32.9 Hemoglobin Concent Red Cell 13.5 Distribution Width Platelet Count 230 Mean Platelet Volume 10.7 H Immature 0.300 Granulocytes % Neutrophils % 37.4 L Lymphocytes % 43.2 Monocytes % 8.4 Eosinophils % 8.4 H Basophils % 2.3 H Nucleated Red Blood 0.0 Cells % Immature 0.010 Granulocytes # Neutrophils # 1.3 L Lymphocytes # 1.5 Monocytes # 0.3 Eosinophils # 0.3 Basophils # 0.1 Nucleated Red Blood 0.0 Cells # Sodium Level 147 H Potassium Level 3.9 Chloride Level 108 Carbon Dioxide Level 31 Anion Gap 8 Blood Urea Nitrogen 6 L Creatinine 0.57 L Est Glomerular > 60 Filtrat Rate mL/min Glucose Level 67 #L Calcium Level 9.2 Total Bilirubin 1.9 H Direct Bilirubin 0.00 Indirect Bilirubin 1.9 H Aspartate Amino 610 #H Transf (AST/SGOT) Alanine 285 H Aminotransferase (AL T/SGPT) Alkaline Phosphatase 197 H Total Protein 6.3 Albumin 3.4 Globulin 2.90 Albumin/Globulin 1.17 Ratio Lipase 1150 H Test 12/18/18 05:17 12/18/18 09:00 12/18/18 09:17 12/18/18 09:40 Bedside Glucose 71 67 L 74 87 Test 12/18/18 09:57 12/18/18 13:20 Bedside Glucose 87 114 Medications Medication Current Medications IV Flush (NS 3 ml) 3 ml PER PROTOCOL IV ; Start 12/15/18 at 18:30 Ondansetron HCl (Zofran Inj) 4 mg Q6H PRN IV NAUSEA/VOMITING; Start 12/15/18 at 18:30 Acetaminophen (Tylenol Tab) 650 mg Q6H PRN PO .PAIN 1-3 OR TEMP; Start 12/15/18 at 18:30 Acetaminophen/ Hydrocodone Bitart ([place] (5/325)) 1 tab Q6H PRN PO .MOD PAIN 4- 6 Last administered on 12/16/18at 12:57; Admin Dose 1 TAB; Start 12/15/18 at 18:30 Docusate Sodium (Colace) 100 mg Q12H PRN PO .CONSTIPATION; Start 12/15/18 at 18:30 Magnesium Hydroxide (Milk Of Mag) 30 ml DAILY PRN PO .CONSTIPATION; Start 12/15/18 at 18:30 Lorazepam (Ativan) 0.5 mg Q6H PRN IV ANXIETY; Start 12/15/18 at 18:30 Albuterol/ Ipratropium (Duoneb) 3 ml Q4H RESP THERAPY PRN HHN SHORTNESS OF BREATH; Start 12/15/18 at 18:30 Hydralazine HCl (Apresoline) 10 mg Q6H PRN IV ELEVATED BLOOD PRESSURE; Start 12/15/18 at 18:30 Nitroglycerin (Nitroglycerin (Sl Tab) 0.4 Mg) 1 tab Q5M PRN SL ANGINA; Start 12/15/18 at 18:30 Diagnostic Test (Pha) (Accu-Chek) 1 ea Q4 XX Last administered on 12/18/18at 13:21; Admin Dose 1 EA; Start 12/16/18 at 01:00 Miscellaneous Information 1 ea NOTE XX ; Start 12/16/18 at 01:30 Glucose (Glutose) 15 gm Q15M PRN PO DECREASED GLUCOSE; Start 12/16/18 at 01:30 Glucose (Glutose) 22.5 gm Q15M PRN PO DECREASED GLUCOSE; Start 12/16/18 at 01:30 Dextrose (D50w Syringe) 25 ml Q15M PRN IV DECREASED GLUCOSE Last administered on 12/16/18at 06:23; Admin Dose 25 ML; Start 12/16/18 at 01:30 Dextrose (D50w Syringe) 50 ml Q15M PRN IV DECREASED GLUCOSE; Start 12/16/18 at 01:30 Glucagon (Glucagen) 1 mg Q15M PRN IM DECREASED GLUCOSE; Start 12/16/18 at 01:30 Glucose (Glutose) 15 gm Q15M PRN BUCCAL DECREASED GLUCOSE; Start 12/16/18 at 01:30 Morphine Sulfate (morphine) 1 mg Q4H PRN IV .SEVERE PAIN 7-10 Last administered on 12/17/18at 05:30; Admin Dose 1 MG; Start 12/16/18 at 14:30 Insulin Pump (Patient'S Own Insulin Pump) Q4H Q4 SC Last administered on 12/17/18at 18:02; Admin Dose 3 UNIT; Start 12/16/18 at 17:00 Sodium Chloride 1,000 ml @ 100 mls/hr Q10H IV Last administered on 12/18/18at 08:57; Admin Dose 100 MLS/HR; Start 12/17/18 at 12:30 SANJAY CALDERON Dec 18, 2018 13:46
[2018-12-18 13:56] VITALS: BP 131/82; PULSE 73; RESP 17
[2018-12-18 19:25] VITALS: BP 118/78; PULSE 87; RESP 20
[2018-12-19] MEDS: INSULIN PUMP SC SCH ×6 (01:00→20:43)
[2018-12-19] MEDS: ACCU-CHEK XX SCH ×6 (01:05→20:44)
[2018-12-19 02:25] VITALS: BP 113/77; PULSE 73; RESP 20
[2018-12-19 08:09] VITALS: BP 116/75; PULSE 83; RESP 17
--- NOTE | 2018-12-19 10:27 | PN ---
Date/Time of Note Date/Time of Note DATE: 12/19/18 TIME: 10:24 Assessment/Plan VTE Prophylaxis Risk score (from Nsg)>0 risk: 0 SCD applied (from Ns): No SCD contraindicated: other Pharmacological prophylaxis: NA/contraindicated Pharm contraindication: low risk/ambulating Lines/Catheters IV [facility] ([facility] Peripheral IV Urinary Cath still in place: No Assessment/Plan Hospital Course S: Seen by GI team yesterday, MRCP results reviewed. Patient tolerated liquid diet during the day and accidentally received a regular diet last night, but patient denies any abdominal pain after that, no nausea or vomiting. His AST and ALT and alk phos are higher than yesterday, bilirubin is normal. Lipase is slightly higher today as well. Otherwise no other acute events overnight. O: VS-see below PHYSICAL EXAMINATION: GENERAL: lying in bed, answering questions appropriately. No acute distress. Father at bedside. HEENT: Pupils are equal, round and reactive to light. Extraocular muscles are intact. NECK: Supple, no thyromegaly. LUNGS: Clear to auscultation bilaterally. CARDIOVASCULAR: S1 and S2 heard. No rubs or gallops. ABDOMEN: Soft. Mild tenderness to palpation in epigastric area, left upper quadrant area. No rebound or guarding. Normal bowel sounds. MUSCULOSKELETAL: No lower extremity edema bilaterally. NEUROLOGIC: No focal deficits. MRCP: IMPRESSION: 1. No evidence of choledocholithiasis, biliary dilatation, or biliary obstruction. 2. Nonspecific gallbladder wall thickening in the absence of stones. 3. Trace effusions and ascites. ASSESSMENT AND PLAN: 23-year-old male coming in with abdominal pain secondary to pancreatitis which is likely secondary to alcohol use, with prior history of type 1 diabetes. 1. Abdominal pain -improving, secondary to alcohol-induced pancreatitis. Lipase 3963 -> 1400- >1200 -> 1100 ->1600. LFTs, specifically AST, ALT, alk phos all slightly more higher today, but bilirubin has been normal. Acute hepatitis panel was negative. -Appreciate GI consult, follow-up the recommendations regarding any potential further imaging? Monitor LFTs, continue liquid diet for now, -Continue antiemetic medications 2. Type 1 diabetes A1c = 9.5, sugars stable, seen by religious educator, still on insulin pump - continue to use insulin pump, continue to monitor sugars. Result Diagram: 12/19/18 0426 12/19/18 0426 Results 24hrs Laboratory Tests Test 12/18/18 13:20 12/18/18 17:51 12/18/18 21:28 12/19/18 01:03 Bedside Glucose 114 78 235 H 84 Test 12/19/18 04:26 12/19/18 05:32 12/19/18 05:52 12/19/18 06:20 White Blood Count 4.6 #L Red Blood Count 3.76 L Hemoglobin 11.7 L Hematocrit 34.9 L Mean Corpuscular 92.8 Volume Mean Corpuscular 31.1 Hemoglobin Mean Corpuscular 33.5 Hemoglobin Concent Red Cell 13.7 Distribution Width Platelet Count 231 Mean Platelet Volume 10.5 H Immature 0.400 Granulocytes % Neutrophils % 45.0 Lymphocytes % 35.7 Monocytes % 8.7 Eosinophils % 8.5 H Basophils % 1.7 Nucleated Red Blood 0.0 Cells % Immature 0.020 Granulocytes # Neutrophils # 2.1 Lymphocytes # 1.6 Monocytes # 0.4 Eosinophils # 0.4 Basophils # 0.1 Nucleated Red Blood 0.0 Cells # Sodium Level 144 Potassium Level 3.5 Chloride Level 107 Carbon Dioxide Level 29 Anion Gap 8 Blood Urea Nitrogen 8 Creatinine 0.58 L Est Glomerular > 60 Filtrat Rate mL/min Glucose Level 62 L Calcium Level 9.0 Total Bilirubin 1.0 Direct Bilirubin 0.00 Indirect Bilirubin 1.0 Aspartate Amino 677 H Transf (AST/SGOT) Alanine 368 H Aminotransferase (AL T/SGPT) Alkaline Phosphatase 194 H Total Protein 5.7 L Albumin 3.1 L Lipase 1602 H Bedside Glucose 52 L 50 L 105 Test 12/19/18 06:37 12/19/18 08:58 Bedside Glucose 122 80 Exam/Review of Systems Exam Vitals Vital Signs Date Temp Pulse Resp B/P (MAP) Pulse Ox O2 O2 Flow FiO2 Time Delivery Rate 12/19/18 98.5 83 17 116/75 99 Room Air 08:09 (89) Intake and Output 12/18/18 12/18/18 12/19/18 1515:00 23:00 07:00 IntakeIntake Total 1260 ml 1200 ml BalanceBalance 1260 ml 1200 ml Results Results 24hrs Laboratory Tests Test 12/18/18 13:20 12/18/18 17:51 12/18/18 21:28 12/19/18 01:03 Bedside Glucose 114 78 235 H 84 Test 12/19/18 04:26 12/19/18 05:32 12/19/18 05:52 12/19/18 06:20 White Blood Count 4.6 #L Red Blood Count 3.76 L Hemoglobin 11.7 L Hematocrit 34.9 L Mean Corpuscular 92.8 Volume Mean Corpuscular 31.1 Hemoglobin Mean Corpuscular 33.5 Hemoglobin Concent Red Cell 13.7 Distribution Width Platelet Count 231 Mean Platelet Volume 10.5 H Immature 0.400 Granulocytes % Neutrophils % 45.0 Lymphocytes % 35.7 Monocytes % 8.7 Eosinophils % 8.5 H Basophils % 1.7 Nucleated Red Blood 0.0 Cells % Immature 0.020 Granulocytes # Neutrophils # 2.1 Lymphocytes # 1.6 Monocytes # 0.4 Eosinophils # 0.4 Basophils # 0.1 Nucleated Red Blood 0.0 Cells # Sodium Level 144 Potassium Level 3.5 Chloride Level 107 Carbon Dioxide Level 29 Anion Gap 8 Blood Urea Nitrogen 8 Creatinine 0.58 L Est Glomerular > 60 Filtrat Rate mL/min Glucose Level 62 L Calcium Level 9.0 Total Bilirubin 1.0 Direct Bilirubin 0.00 Indirect Bilirubin 1.0 Aspartate Amino 677 H Transf (AST/SGOT) Alanine 368 H Aminotransferase (AL T/SGPT) Alkaline Phosphatase 194 H Total Protein 5.7 L Albumin 3.1 L Lipase 1602 H Bedside Glucose 52 L 50 L 105 Test 12/19/18 06:37 12/19/18 08:58 Bedside Glucose 122 80 Medications Medication Current Medications IV Flush (NS 3 ml) 3 ml PER PROTOCOL IV ; Start 12/15/18 at 18:30 Ondansetron HCl (Zofran Inj) 4 mg Q6H PRN IV NAUSEA/VOMITING; Start 12/15/18 at 18:30 Acetaminophen (Tylenol Tab) 650 mg Q6H PRN PO .PAIN 1-3 OR TEMP; Start 12/15/18 at 18:30 Acetaminophen/ Hydrocodone Bitart ([place] (5/325)) 1 tab Q6H PRN PO .MOD PAIN 4- 6 Last administered on 12/16/18at 12:57; Admin Dose 1 TAB; Start 12/15/18 at 18:30 Docusate Sodium (Colace) 100 mg Q12H PRN PO .CONSTIPATION; Start 12/15/18 at 18:30 Magnesium Hydroxide (Milk Of Mag) 30 ml DAILY PRN PO .CONSTIPATION; Start 12/15/18 at 18:30 Lorazepam (Ativan) 0.5 mg Q6H PRN IV ANXIETY; Start 12/15/18 at 18:30 Albuterol/ Ipratropium (Duoneb) 3 ml Q4H RESP THERAPY PRN HHN SHORTNESS OF BREATH; Start 12/15/18 at 18:30 Hydralazine HCl (Apresoline) 10 mg Q6H PRN IV ELEVATED BLOOD PRESSURE; Start 12/15/18 at 18:30 Nitroglycerin (Nitroglycerin (Sl Tab) 0.4 Mg) 1 tab Q5M PRN SL ANGINA; Start 12/15/18 at 18:30 Diagnostic Test (Pha) (Accu-Chek) 1 ea Q4 XX Last administered on 12/19/18at 09:47; Admin Dose 1 EA; Start 12/16/18 at 01:00 Miscellaneous Information 1 ea NOTE XX ; Start 12/16/18 at 01:30 Glucose (Glutose) 15 gm Q15M PRN PO DECREASED GLUCOSE; Start 12/16/18 at 01:30 Glucose (Glutose) 22.5 gm Q15M PRN PO DECREASED GLUCOSE; Start 12/16/18 at 01:30 Dextrose (D50w Syringe) 25 ml Q15M PRN IV DECREASED GLUCOSE Last administered on 12/16/18at 06:23; Admin Dose 25 ML; Start 12/16/18 at 01:30 Dextrose (D50w Syringe) 50 ml Q15M PRN IV DECREASED GLUCOSE; Start 12/16/18 at 01:30 Glucagon (Glucagen) 1 mg Q15M PRN IM DECREASED GLUCOSE; Start 12/16/18 at 01:30 Glucose (Glutose) 15 gm Q15M PRN BUCCAL DECREASED GLUCOSE; Start 12/16/18 at 01:30 Morphine Sulfate (morphine) 1 mg Q4H PRN IV .SEVERE PAIN 7-10 Last administered on 12/17/18at 05:30; Admin Dose 1 MG; Start 12/16/18 at 14:30 Insulin Pump (Patient'S Own Insulin Pump) Q4H Q4 SC Last administered on 12/18/18at 21:35; Admin Dose 5 UNIT; Start 12/16/18 at 17:00 SANJAY CALDERON Dec 19, 2018 10:27
--- NOTE | 2018-12-19 13:13 | PN ---
Date/Time of Note Date/Time of Note DATE: 12/19/18 TIME: 13:08 Assessment/Plan VTE Prophylaxis Risk score (from Nsg)>0 risk: 0 SCD applied (from Ns): No SCD contraindicated: low risk/ambulating Pharmacological prophylaxis: NA/contraindicated Pharm contraindication: low risk/ambulating Lines/Catheters IV Catheter Type (from Nrs): Peripheral IV Urinary Cath still in place: No Assessment/Plan Hospital Course Summary Assessment and Plan: Assessment: Acute pancreatitis Transaminitis- up today Indirect hyperbilirubinemia- resolved Type 1 diabetes Plan: Hepatitis serology for A/B/C negative. AMA, and auto-immune work-up Low fat diet MRCP - reviewed Ok to d/c when LFTS/Lipase start to trend down- pt will need to f/u with GI for further out-pt work-up Will order amylase today to assess correlation with lipase Patient seen in collaboration with Dr Abreu Subjective: Course reviewed with nursing staff Patient interviewed and examined All labs, imaging and other results reviewed The patient was give a regular diet last night tolerated well, with no c/o n.v or abd pain. No upper abd pain with deep palpation today. despite increase in lipase and LFTS (AST/ALT) Will order work with auto-immune hepatitis will also check AMA- likely neg PHYSICAL EXAMINATION: GENERAL: Well developed, well nourished, alert & oriented x 3, in no acute distress SKIN: No lesions EYES: Pupils equal reactive to light, no discharge. EARS/NOSE AND THROAT: Ears normal, nose normal. NECK: Supple, no masses, thyroid normal CHEST: Inspection within normal limits. CARDIOVASCULAR: Heart: Regular rate and rhythm RESPIRATORY: Lungs clear to auscultation GASTROINTESTINAL AND LIVER: Abdomen: Soft, non tenderness (RUQ/LUQ discomfort with deep palpation- resolved 12/19), non-distended, no hernias, no masses, no organomegaly, no ascites, no guarding, no rebound tenderness, normoactive bowel sounds. Rectal: Deferred. EXTREMITIES: No cyanosis, clubbing or edema. Result Diagram: 12/19/18 0426 12/19/18 0426 Results 24hrs Laboratory Tests Test 12/18/18 13:20 12/18/18 17:51 12/18/18 21:28 12/19/18 01:03 Bedside Glucose 114 78 235 H 84 Test 12/19/18 04:26 12/19/18 05:32 12/19/18 05:52 12/19/18 06:20 White Blood Count 4.6 #L Red Blood Count 3.76 L Hemoglobin 11.7 L Hematocrit 34.9 L Mean Corpuscular 92.8 Volume Mean Corpuscular 31.1 Hemoglobin Mean Corpuscular 33.5 Hemoglobin Concent Red Cell 13.7 Distribution Width Platelet Count 231 Mean Platelet Volume 10.5 H Immature 0.400 Granulocytes % Neutrophils % 45.0 Lymphocytes % 35.7 Monocytes % 8.7 Eosinophils % 8.5 H Basophils % 1.7 Nucleated Red Blood 0.0 Cells % Immature 0.020 Granulocytes # Neutrophils # 2.1 Lymphocytes # 1.6 Monocytes # 0.4 Eosinophils # 0.4 Basophils # 0.1 Nucleated Red Blood 0.0 Cells # Sodium Level 144 Potassium Level 3.5 Chloride Level 107 Carbon Dioxide Level 29 Anion Gap 8 Blood Urea Nitrogen 8 Creatinine 0.58 L Est Glomerular > 60 Filtrat Rate mL/min Glucose Level 62 L Calcium Level 9.0 Total Bilirubin 1.0 Direct Bilirubin 0.00 Indirect Bilirubin 1.0 Aspartate Amino 677 H Transf (AST/SGOT) Alanine 368 H Aminotransferase (AL T/SGPT) Alkaline Phosphatase 194 H Total Protein 5.7 L Albumin 3.1 L Lipase 1602 H Bedside Glucose 52 L 50 L 105 Test 12/19/18 06:37 12/19/18 08:58 12/19/18 12:25 12/19/18 12:51 Bedside Glucose 122 80 59 L 83 Exam/Review of Systems Exam Vitals Vital Signs Date Temp Pulse Resp B/P (MAP) Pulse Ox O2 O2 Flow FiO2 Time Delivery Rate 12/19/18 98.5 83 17 116/75 99 Room Air 08:09 (89) Intake and Output 12/18/18 12/18/18 12/19/18 1515:00 23:00 07:00 IntakeIntake Total 1260 ml 1200 ml BalanceBalance 1260 ml 1200 ml Results Results 24hrs Laboratory Tests Test 12/18/18 13:20 12/18/18 17:51 12/18/18 21:28 12/19/18 01:03 Bedside Glucose 114 78 235 H 84 Test 12/19/18 04:26 12/19/18 05:32 12/19/18 05:52 12/19/18 06:20 White Blood Count 4.6 #L Red Blood Count 3.76 L Hemoglobin 11.7 L Hematocrit 34.9 L Mean Corpuscular 92.8 Volume Mean Corpuscular 31.1 Hemoglobin Mean Corpuscular 33.5 Hemoglobin Concent Red Cell 13.7 Distribution Width Platelet Count 231 Mean Platelet Volume 10.5 H Immature 0.400 Granulocytes % Neutrophils % 45.0 Lymphocytes % 35.7 Monocytes % 8.7 Eosinophils % 8.5 H Basophils % 1.7 Nucleated Red Blood 0.0 Cells % Immature 0.020 Granulocytes # Neutrophils # 2.1 Lymphocytes # 1.6 Monocytes # 0.4 Eosinophils # 0.4 Basophils # 0.1 Nucleated Red Blood 0.0 Cells # Sodium Level 144 Potassium Level 3.5 Chloride Level 107 Carbon Dioxide Level 29 Anion Gap 8 Blood Urea Nitrogen 8 Creatinine 0.58 L Est Glomerular > 60 Filtrat Rate mL/min Glucose Level 62 L Calcium Level 9.0 Total Bilirubin 1.0 Direct Bilirubin 0.00 Indirect Bilirubin 1.0 Aspartate Amino 677 H Transf (AST/SGOT) Alanine 368 H Aminotransferase (AL T/SGPT) Alkaline Phosphatase 194 H Total Protein 5.7 L Albumin 3.1 L Lipase 1602 H Bedside Glucose 52 L 50 L 105 Test 12/19/18 06:37 12/19/18 08:58 12/19/18 12:25 12/19/18 12:51 Bedside Glucose 122 80 59 L 83 Medications Medication Current Medications IV Flush (NS 3 ml) 3 ml PER PROTOCOL IV ; Start 12/15/18 at 18:30 Ondansetron HCl (Zofran Inj) 4 mg Q6H PRN IV NAUSEA/VOMITING; Start 12/15/18 at 18:30 Acetaminophen (Tylenol Tab) 650 mg Q6H PRN PO .PAIN 1-3 OR TEMP; Start 12/15/18 at 18:30 Acetaminophen/ Hydrocodone Bitart ([place] (5/325)) 1 tab Q6H PRN PO .MOD PAIN 4- 6 Last administered on 12/16/18at 12:57; Admin Dose 1 TAB; Start 12/15/18 at 18:30 Docusate Sodium (Colace) 100 mg Q12H PRN PO .CONSTIPATION; Start 12/15/18 at 18:30 Magnesium Hydroxide (Milk Of Mag) 30 ml DAILY PRN PO .CONSTIPATION; Start 12/15/18 at 18:30 Lorazepam (Ativan) 0.5 mg Q6H PRN IV ANXIETY; Start 12/15/18 at 18:30 Albuterol/ Ipratropium (Duoneb) 3 ml Q4H RESP THERAPY PRN HHN SHORTNESS OF BREATH; Start 12/15/18 at 18:30 Hydralazine HCl (Apresoline) 10 mg Q6H PRN IV ELEVATED BLOOD PRESSURE; Start 12/15/18 at 18:30 Nitroglycerin (Nitroglycerin (Sl Tab) 0.4 Mg) 1 tab Q5M PRN SL ANGINA; Start 12/15/18 at 18:30 Diagnostic Test (Pha) (Accu-Chek) 1 ea Q4 XX Last administered on 12/19/18at 09:47; Admin Dose 1 EA; Start 12/16/18 at 01:00 Miscellaneous Information 1 ea NOTE XX ; Start 12/16/18 at 01:30 Glucose (Glutose) 15 gm Q15M PRN PO DECREASED GLUCOSE; Start 12/16/18 at 01:30 Glucose (Glutose) 22.5 gm Q15M PRN PO DECREASED GLUCOSE; Start 12/16/18 at 01:30 Dextrose (D50w Syringe) 25 ml Q15M PRN IV DECREASED GLUCOSE Last administered on 12/16/18at 06:23; Admin Dose 25 ML; Start 12/16/18 at 01:30 Dextrose (D50w Syringe) 50 ml Q15M PRN IV DECREASED GLUCOSE; Start 12/16/18 at 01:30 Glucagon (Glucagen) 1 mg Q15M PRN IM DECREASED GLUCOSE; Start 12/16/18 at 01:30 Glucose (Glutose) 15 gm Q15M PRN BUCCAL DECREASED GLUCOSE; Start 12/16/18 at 01:30 Morphine Sulfate (morphine) 1 mg Q4H PRN IV .SEVERE PAIN 7-10 Last administered on 12/17/18at 05:30; Admin Dose 1 MG; Start 12/16/18 at 14:30 Insulin Pump (Patient'S Own Insulin Pump) Q4H Q4 SC Last administered on 12/18/18at 21:35; Admin Dose 5 UNIT; Start 12/16/18 at 17:00 ALEXX HARRIS Dec 19, 2018 13:13
[2018-12-19 15:00] VITALS: BP 116/71; PULSE 88; RESP 16
[2018-12-19 19:09] VITALS: BP 124/63; PULSE 86; RESP 18
[2018-12-20] MEDS: INSULIN PUMP SC SCH ×5 (01:00→17:49)
[2018-12-20] MEDS: ACCU-CHEK XX SCH ×6 (01:00→21:00)
[2018-12-20 02:02] VITALS: BP 100/61; PULSE 81; RESP 18
[2018-12-20 08:11] VITALS: BP 100/57; PULSE 79; RESP 18
[2018-12-20] MEDS ORDERED: POTASSIUM CHLORIDE 20 MEQ POWDER FOR ORAL SOLN PO ONE (10:30)
[2018-12-20 13:55] VITALS: BP 136/66; PULSE 93; RESP 17
--- NOTE | 2018-12-20 14:10 | PN ---
Date/Time of Note Date/Time of Note DATE: 12/20/18 TIME: 14:06 Assessment/Plan VTE Prophylaxis Risk score (from Nsg)>0 risk: 0 SCD applied (from Nsg): No SCD contraindicated: other (scds) Pharmacological prophylaxis: other (scds) Lines/Catheters IV Catheter Type (from Nrs): [place] Urinary Cath still in place: No Assessment/Plan Hospital Course Summary Assessment and Plan: Assessment: Acute pancreatitis Transaminitis- up today Indirect hyperbilirubinemia- resolved Type 1 diabetes Plan: Auto-immune work-up pending for AIP and AH Will order CT abd;pelvis po/iv contrast NPO for imaging then down grade to cl liq diet. Patient seen in collaboration with Dr Abreu Subjective: Course reviewed with nursing staff Patient interviewed and examined All labs, imaging and other results reviewed No over night events, pt was started on a low fat diet yesterday, no c/o abd pain, nausea or vomiting, however lipase has almost doubled, and elevated amylase is noted. Upon further questioning patient states he did take 3g to 4g of Tylenol each day x2 days prior to coming into the hospital. Again he does not have any pain what so ever, nor does he c/o N/v- pt will ne NPO now for imaging and down graded to cl liq diet until results have returned. PHYSICAL EXAMINATION: GENERAL: Well developed, well nourished, alert & oriented x 3, in no acute distress SKIN: No lesions EYES: Pupils equal reactive to light, no discharge. EARS/NOSE AND THROAT: Ears normal, nose normal. NECK: Supple, no masses, thyroid normal CHEST: Inspection within normal limits. CARDIOVASCULAR: Heart: Regular rate and rhythm RESPIRATORY: Lungs clear to auscultation GASTROINTESTINAL AND LIVER: Abdomen: Soft, non tenderness (RUQ/LUQ discomfort with deep palpation- resolved 12/19), non-distended, no hernias, no masses, no organomegaly, no ascites, no guarding, no rebound tenderness, normoactive bowel sounds. Rectal: Deferred. EXTREMITIES: No cyanosis, clubbing or edema. Result Diagram: 12/20/18 0455 12/20/18 0455 Results 24hrs Laboratory Tests Test 12/19/18 17:03 12/19/18 20:31 12/20/18 01:11 12/20/18 04:55 Bedside Glucose 294 H 280 H 105 White Blood Count 4.8 Red Blood Count 3.99 L Hemoglobin 12.4 L Hematocrit 37.6 L Mean Corpuscular 94.2 Volume Mean Corpuscular 31.1 Hemoglobin Mean Corpuscular 33.0 Hemoglobin Concent Red Cell 13.4 Distribution Width Platelet Count 245 Mean Platelet Volume 10.4 Immature 0.600 H Granulocytes % Neutrophils % 48.0 Lymphocytes % 33.6 Monocytes % 9.2 Eosinophils % 6.5 Basophils % 2.1 H Nucleated Red Blood 0.0 Cells % Immature 0.030 Granulocytes # Neutrophils # 2.3 Lymphocytes # 1.6 Monocytes # 0.4 Eosinophils # 0.3 Basophils # 0.1 Nucleated Red Blood 0.0 Cells # Sodium Level 144 Potassium Level 3.4 L Chloride Level 105 Carbon Dioxide Level 31 Anion Gap 8 Blood Urea Nitrogen 10 Creatinine 0.60 L Est Glomerular > 60 Filtrat Rate mL/min Glucose Level 59 L Calcium Level 9.3 Phosphorus Level 5.6 H Magnesium Level 2.2 Total Bilirubin 0.9 Direct Bilirubin 0.00 Indirect Bilirubin 0.9 Aspartate Amino 685 H Transf (AST/SGOT) Alanine 442 H Aminotransferase (AL T/SGPT) Alkaline Phosphatase 190 H Total Protein 5.9 L Albumin 3.5 Lipase 3029 H Test 12/20/18 05:14 12/20/18 08:19 12/20/18 12:35 Bedside Glucose 82 148 132 Exam/Review of Systems Exam Vitals Vital Signs Date Temp Pulse Resp B/P (MAP) Pulse Ox O2 O2 Flow FiO2 Time Delivery Rate 12/20/18 98.1 93 17 136/66 95 13:55 (89) 12/20/18 Room Air 02:02 Intake and Output 12/19/18 12/19/18 12/20/18 1515:00 23:00 07:00 IntakeIntake Total 200 ml BalanceBalance 200 ml Results Results 24hrs Laboratory Tests Test 12/19/18 17:03 12/19/18 20:31 12/20/18 01:11 12/20/18 04:55 Bedside Glucose 294 H 280 H 105 White Blood Count 4.8 Red Blood Count 3.99 L Hemoglobin 12.4 L Hematocrit 37.6 L Mean Corpuscular 94.2 Volume Mean Corpuscular 31.1 Hemoglobin Mean Corpuscular 33.0 Hemoglobin Concent Red Cell 13.4 Distribution Width Platelet Count 245 Mean Platelet Volume 10.4 Immature 0.600 H Granulocytes % Neutrophils % 48.0 Lymphocytes % 33.6 Monocytes % 9.2 Eosinophils % 6.5 Basophils % 2.1 H Nucleated Red Blood 0.0 Cells % Immature 0.030 Granulocytes # Neutrophils # 2.3 Lymphocytes # 1.6 Monocytes # 0.4 Eosinophils # 0.3 Basophils # 0.1 Nucleated Red Blood 0.0 Cells # Sodium Level 144 Potassium Level 3.4 L Chloride Level 105 Carbon Dioxide Level 31 Anion Gap 8 Blood Urea Nitrogen 10 Creatinine 0.60 L Est Glomerular > 60 Filtrat Rate mL/min Glucose Level 59 L Calcium Level 9.3 Phosphorus Level 5.6 H Magnesium Level 2.2 Total Bilirubin 0.9 Direct Bilirubin 0.00 Indirect Bilirubin 0.9 Aspartate Amino 685 H Transf (AST/SGOT) Alanine 442 H Aminotransferase (AL T/SGPT) Alkaline Phosphatase 190 H Total Protein 5.9 L Albumin 3.5 Lipase 3029 H Test 12/20/18 05:14 12/20/18 08:19 12/20/18 12:35 Bedside Glucose 82 148 132 Medications Medication Current Medications IV Flush (NS 3 ml) 3 ml PER PROTOCOL IV ; Start 12/15/18 at 18:30 Ondansetron HCl (Zofran Inj) 4 mg Q6H PRN IV NAUSEA/VOMITING; Start 12/15/18 at 18:30 Acetaminophen (Tylenol Tab) 650 mg Q6H PRN PO .PAIN 1-3 OR TEMP; Start 12/15/18 at 18:30 Acetaminophen/ Hydrocodone Bitart ([place] (5/325)) 1 tab Q6H PRN PO .MOD PAIN 4- 6 Last administered on 12/16/18at 12:57; Admin Dose 1 TAB; Start 12/15/18 at 18:30 Docusate Sodium (Colace) 100 mg Q12H PRN PO .CONSTIPATION; Start 12/15/18 at 18:30 Magnesium Hydroxide (Milk Of Mag) 30 ml DAILY PRN PO .CONSTIPATION; Start 12/15/18 at 18:30 Lorazepam (Ativan) 0.5 mg Q6H PRN IV ANXIETY; Start 12/15/18 at 18:30 Albuterol/ Ipratropium (Duoneb) 3 ml Q4H RESP THERAPY PRN HHN SHORTNESS OF BREATH; Start 12/15/18 at 18:30 Hydralazine HCl (Apresoline) 10 mg Q6H PRN IV ELEVATED BLOOD PRESSURE; Start 12/15/18 at 18:30 Nitroglycerin (Nitroglycerin (Sl Tab) 0.4 Mg) 1 tab Q5M PRN SL ANGINA; Start 12/15/18 at 18:30 Miscellaneous Information 1 ea NOTE XX ; Start 12/16/18 at 01:30 Glucose (Glutose) 15 gm Q15M PRN PO DECREASED GLUCOSE; Start 12/16/18 at 01:30 Glucose (Glutose) 22.5 gm Q15M PRN PO DECREASED GLUCOSE; Start 12/16/18 at 01:30 Dextrose (D50w Syringe) 25 ml Q15M PRN IV DECREASED GLUCOSE Last administered on 12/16/18at 06:23; Admin Dose 25 ML; Start 12/16/18 at 01:30 Dextrose (D50w Syringe) 50 ml Q15M PRN IV DECREASED GLUCOSE; Start 12/16/18 at 01:30 Glucagon (Glucagen) 1 mg Q15M PRN IM DECREASED GLUCOSE; Start 12/16/18 at 01:30 Glucose (Glutose) 15 gm Q15M PRN BUCCAL DECREASED GLUCOSE; Start 12/16/18 at 01:30 Morphine Sulfate (morphine) 1 mg Q4H PRN IV .SEVERE PAIN 7-10 Last administered on 12/17/18at 05:30; Admin Dose 1 MG; Start 12/16/18 at 14:30 Insulin Pump (Patient'S Own Insulin Pump) Q4H Q4 SC Last administered on 12/20/18 13:28; Admin Dose 5 UNIT; Start 12/16/18 at 17:00 Diagnostic Test (Pha) (Accu-Chek) 1 ea AC MEALS AND BEDTIME XX Last administered on 12/20/18at 12:40; Admin Dose 1 EA; Start 12/20/18 at 11:10 ALEXX HARRIS Dec 20, 2018 14:10
[2018-12-20] MEDS ORDERED: BARIUM SULF 2% 450 ML BTL (BERRY SMOOTHIE) PO ONE (14:30)
--- NOTE | 2018-12-20 17:35 | PN ---
Date/Time of Note Date/Time of Note DATE: 12/20/18 TIME: 17:32 Assessment/Plan VTE Prophylaxis Risk score (from Nsg)>0 risk: 0 SCD applied (from Nsg): No SCD contraindicated: low risk/ambulating Pharmacological prophylaxis: NA/contraindicated Pharm contraindication: low risk/ambulating Lines/Catheters IV Catheter Type (from Nrsg): Saline Lock Urinary Cath still in place: No Assessment/Plan Assessment/Plan 23-year-old male coming in with abdominal pain secondary to pancreatitis which is likely secondary to alcohol use, with prior history of type 1 diabetes. 1. Abdominal pain -improving, secondary to alcohol-induced pancreatitis. Lipase 3963 -> 1400- >1200 -> 1100. -continue regular diet for now -Continue antiemetic medications 2. Elevated transaminases - AST/ALT elevated, now rising to 600s. - Hep panel negative - Autoimmine hep panel pending - MRCP negative as above. - Patient reports taking [id number] mg tylenol x1 day for abdominal mathias. However would not expect reaction to be so delayed and mild. Patient is not on the normogram anyway, so no N-acetylcystine. - Will continue to monitor CMP. 3. Type 1 diabetes A1c = 9.5, sugars stable, seen by perinatal educator, still on insulin pump - the patient will continue to use his insulin pump and we will monitor sugars. Result Diagram: 12/20/18 0455 12/20/18 0455 Subjective 24 Hr Interval Summary Free Text/Dictation No acute overnight events. Patient tolerating diet, ambulating, on room air, no abdominal pain. No complaints. Exam/Review of Systems Exam Vitals Vital Signs Date Temp Pulse Resp B/P (MAP) Pulse Ox O2 O2 Flow FiO2 Time Delivery Rate 12/20/18 98.1 93 17 136/66 95 13:55 (89) 12/20/18 Room Air 02:02 Intake and Output 12/19/18 12/19/18 12/20/18 1515:00 23:00 07:00 IntakeIntake Total 200 ml BalanceBalance 200 ml Exam GENERAL: lying in bed, answering questions appropriately. No acute distress. HEENT: Pupils are equal, round and reactive to light. Extraocular muscles are intact. NECK: Supple, no thyromegaly. LUNGS: Clear to auscultation bilaterally. CARDIOVASCULAR: S1 and S2 heard. No rubs or gallops. ABDOMEN: Soft. Nontender to deep palpation throughout. No rebound or guarding. Normal bowel sounds. MUSCULOSKELETAL: No lower extremity edema bilaterally. Results Results 24hrs Laboratory Tests Test 12/19/18 20:31 12/20/18 01:11 12/20/18 04:55 12/20/18 05:14 Bedside Glucose 280 H 105 82 White Blood Count 4.8 Red Blood Count 3.99 L Hemoglobin 12.4 L Hematocrit 37.6 L Mean Corpuscular 94.2 Volume Mean Corpuscular 31.1 Hemoglobin Mean Corpuscular 33.0 Hemoglobin Concent Red Cell 13.4 Distribution Width Platelet Count 245 Mean Platelet Volume 10.4 Immature 0.600 H Granulocytes % Neutrophils % 48.0 Lymphocytes % 33.6 Monocytes % 9.2 Eosinophils % 6.5 Basophils % 2.1 H Nucleated Red Blood 0.0 Cells % Immature 0.030 Granulocytes # Neutrophils # 2.3 Lymphocytes # 1.6 Monocytes # 0.4 Eosinophils # 0.3 Basophils # 0.1 Nucleated Red Blood 0.0 Cells # Sodium Level 144 Potassium Level 3.4 L Chloride Level 105 Carbon Dioxide Level 31 Anion Gap 8 Blood Urea Nitrogen 10 Creatinine 0.60 L Est Glomerular > 60 Filtrat Rate mL/min Glucose Level 59 L Calcium Level 9.3 Phosphorus Level 5.6 H Magnesium Level 2.2 Total Bilirubin 0.9 Direct Bilirubin 0.00 Indirect Bilirubin 0.9 Aspartate Amino 685 H Transf (AST/SGOT) Alanine 442 H Aminotransferase (AL T/SGPT) Alkaline Phosphatase 190 H Total Protein 5.9 L Albumin 3.5 Lipase 3029 H Test 12/20/18 08:19 12/20/18 12:35 Bedside Glucose 148 132 Medications Medication Current Medications IV Flush (NS 3 ml) 3 ml PER PROTOCOL IV ; Start 12/15/18 at 18:30 Ondansetron HCl (Zofran Inj) 4 mg Q6H PRN IV NAUSEA/VOMITING; Start 12/15/18 at 18:30 Docusate Sodium (Colace) 100 mg Q12H PRN PO .CONSTIPATION; Start 12/15/18 at 18:30 Magnesium Hydroxide (Milk Of Mag) 30 ml DAILY PRN PO .CONSTIPATION; Start 12/15/18 at 18:30 Lorazepam (Ativan) 0.5 mg Q6H PRN IV ANXIETY; Start 12/15/18 at 18:30 Albuterol/ Ipratropium (Duoneb) 3 ml Q4H RESP THERAPY PRN HHN SHORTNESS OF BREATH; Start 12/15/18 at 18:30 Hydralazine HCl (Apresoline) 10 mg Q6H PRN IV ELEVATED BLOOD PRESSURE; Start 12/15/18 at 18:30 Nitroglycerin (Nitroglycerin (Sl Tab) 0.4 Mg) 1 tab Q5M PRN SL ANGINA; Start 12/15/18 at 18:30 Miscellaneous Information 1 ea NOTE XX ; Start 12/16/18 at 01:30 Glucose (Glutose) 15 gm Q15M PRN PO DECREASED GLUCOSE; Start 12/16/18 at 01:30 Glucose (Glutose) 22.5 gm Q15M PRN PO DECREASED GLUCOSE; Start 12/16/18 at 01:30 Dextrose (D50w Syringe) 25 ml Q15M PRN IV DECREASED GLUCOSE Last administered on 12/16/18at 06:23; Admin Dose 25 ML; Start 12/16/18 at 01:30 Dextrose (D50w Syringe) 50 ml Q15M PRN IV DECREASED GLUCOSE; Start 12/16/18 at 01:30 Glucagon (Glucagen) 1 mg Q15M PRN IM DECREASED GLUCOSE; Start 12/16/18 at 01:30 Glucose (Glutose) 15 gm Q15M PRN BUCCAL DECREASED GLUCOSE; Start 12/16/18 at 01:30 Morphine Sulfate (morphine) 1 mg Q4H PRN IV .SEVERE PAIN 7-10 Last administered on 12/17/18at 05:30; Admin Dose 1 MG; Start 12/16/18 at 14:30 Insulin Pump (Patient'S Own Insulin Pump) Q4H Q4 SC Last administered on 12/20/18 13:28; Admin Dose 5 UNIT; Start 12/16/18 at 17:00 Diagnostic Test (Pha) (Accu-Chek) 1 ea AC MEALS AND BEDTIME XX Last administered on 12/20/18at 12:40; Admin Dose 1 EA; Start 12/20/18 at 11:10 ILIR DURBIN MD Dec 20, 2018 17:35
[2018-12-20] MEDS ORDERED: IOHEXOL 300MG/ML 150 ML BTL ONE (19:52)
[2018-12-20] MEDS ORDERED: SOD CHLORIDE 0.9% 100 ML ONE (19:52)
[2018-12-20 20:06] VITALS: BP 120/79; PULSE 78; RESP 18
[2018-12-20] MEDS: PT'S OWN INSULIN PUMP SC SCH (20:43)
[2018-12-21 02:37] VITALS: BP 115/56; PULSE 93; RESP 18
[2018-12-21 08:23] VITALS: BP 104/53; PULSE 79; RESP 19
[2018-12-21] MEDS: PT'S OWN INSULIN PUMP SC SCH ×2 (09:00→12:30)
[2018-12-21] MEDS: ACCU-CHEK XX SCH ×2 (09:00→12:30)
--- NOTE | 2018-12-21 11:16 | PN ---
Date/Time of Note Date/Time of Note DATE: 12/21/18 TIME: 11:13 Assessment/Plan VTE Prophylaxis Risk score (from Nsg)>0 risk: 0 SCD applied (from Ns): No SCD contraindicated: other (scds) Pharmacological prophylaxis: other (scds) Lines/Catheters [facility] Saline Lock Urinary Cath still in place: No Assessment/Plan Hospital Course Summary Assessment and Plan: Assessment: Acute pancreatitis Transaminitis- up today Indirect hyperbilirubinemia- resolved Type 1 diabetes Plan: CT - reviewed LFTs not trending down, pt remains asymptomatic Pt appears stable for out-pt management, discussed with pt need to f/u with GI to review pending auto-immune work. and to monitor labs Patient seen in collaboration with Dr Abreu Subjective: Course reviewed with nursing staff Patient interviewed and examined All labs, imaging and other results reviewed Pt continues to be asymptomatic feels very well, no over night events He denies n/v or abdominal pain. PHYSICAL EXAMINATION: GENERAL: Well developed, well nourished, alert & oriented x 3, in no acute distress SKIN: No lesions EYES: Pupils equal reactive to light, no discharge. EARS/NOSE AND THROAT: Ears normal, nose normal. NECK: Supple, no masses, thyroid normal CHEST: Inspection within normal limits. CARDIOVASCULAR: Heart: Regular rate and rhythm RESPIRATORY: Lungs clear to auscultation GASTROINTESTINAL AND LIVER: Abdomen: Soft, non tenderness (RUQ/LUQ discomfort with deep palpation- resolved 12/19), non-distended, no hernias, no masses, no organomegaly, no ascites, no guarding, no rebound tenderness, normoactive bowel sounds. Rectal: Deferred. EXTREMITIES: No cyanosis, clubbing or edema. Result Diagram: 12/21/18 0433 12/21/18 0433 Results 24hrs Laboratory Tests Test 12/20/18 12:35 12/20/18 17:42 12/20/18 20:43 12/21/18 04:33 Bedside Glucose 132 267 H 159 White Blood Count 6.0 # Red Blood Count 4.01 L Hemoglobin 12.5 L Hematocrit 37.4 L Mean Corpuscular 93.3 Volume Mean Corpuscular 31.2 Hemoglobin Mean Corpuscular 33.4 Hemoglobin Concent Red Cell 13.6 Distribution Width Platelet Count 253 Mean Platelet Volume 10.5 H Immature 0.800 H Granulocytes % Neutrophils % 57.4 Lymphocytes % 25.5 Monocytes % 9.9 Eosinophils % 4.7 Basophils % 1.7 Nucleated Red Blood 0.0 Cells % Immature 0.050 H Granulocytes # Neutrophils # 3.4 Lymphocytes # 1.5 Monocytes # 0.6 Eosinophils # 0.3 Basophils # 0.1 Nucleated Red Blood 0.0 Cells # Sodium Level 142 Potassium Level 4.0 Chloride Level 104 Carbon Dioxide Level 30 Anion Gap 8 Blood Urea Nitrogen 7 Creatinine 0.55 L Est Glomerular > 60 Filtrat Rate mL/min Glucose Level 186 # Calcium Level 9.3 Total Bilirubin 0.7 Direct Bilirubin 0.00 Indirect Bilirubin 0.7 Aspartate Amino 480 H Transf (AST/SGOT) Alanine 413 H Aminotransferase (AL T/SGPT) Alkaline Phosphatase 195 H Total Protein 6.0 L Albumin 3.3 Exam/Review of Systems Exam Vitals Vital Signs Date Temp Pulse Resp B/P (MAP) Pulse Ox O2 O2 Flow FiO2 Time Delivery Rate 12/21/18 97.7 79 19 104/53 100 Room Air 08:23 (70) Intake and Output 12/20/18 12/20/18 12/21/18 1515:00 23:00 07:00 IntakeIntake Total 600 ml 100 ml 700 ml BalanceBalance 600 ml 100 ml 700 ml Results Results 24hrs Laboratory Tests Test 12/20/18 12:35 12/20/18 17:42 12/20/18 20:43 12/21/18 04:33 Bedside Glucose 132 267 H 159 White Blood Count 6.0 # Red Blood Count 4.01 L Hemoglobin 12.5 L Hematocrit 37.4 L Mean Corpuscular 93.3 Volume Mean Corpuscular 31.2 Hemoglobin Mean Corpuscular 33.4 Hemoglobin Concent Red Cell 13.6 Distribution Width Platelet Count 253 Mean Platelet Volume 10.5 H Immature 0.800 H Granulocytes % Neutrophils % 57.4 Lymphocytes % 25.5 Monocytes % 9.9 Eosinophils % 4.7 Basophils % 1.7 Nucleated Red Blood 0.0 Cells % Immature 0.050 H Granulocytes # Neutrophils # 3.4 Lymphocytes # 1.5 Monocytes # 0.6 Eosinophils # 0.3 Basophils # 0.1 Nucleated Red Blood 0.0 Cells # Sodium Level 142 Potassium Level 4.0 Chloride Level 104 Carbon Dioxide Level 30 Anion Gap 8 Blood Urea Nitrogen 7 Creatinine 0.55 L Est Glomerular > 60 Filtrat Rate mL/min Glucose Level 186 # Calcium Level 9.3 Total Bilirubin 0.7 Direct Bilirubin 0.00 Indirect Bilirubin 0.7 Aspartate Amino 480 H Transf (AST/SGOT) Alanine 413 H Aminotransferase (AL T/SGPT) Alkaline Phosphatase 195 H Total Protein 6.0 L Albumin 3.3 Medications Medication Current Medications IV Flush (NS 3 ml) 3 ml PER PROTOCOL IV ; Start 12/15/18 at 18:30 Ondansetron HCl (Zofran Inj) 4 mg Q6H PRN IV NAUSEA/VOMITING; Start 12/15/18 at 18:30 Docusate Sodium (Colace) 100 mg Q12H PRN PO .CONSTIPATION; Start 12/15/18 at 18:30 Magnesium Hydroxide (Milk Of Mag) 30 ml DAILY PRN PO .CONSTIPATION; Start 12/15/18 at 18:30 Lorazepam (Ativan) 0.5 mg Q6H PRN IV ANXIETY; Start 12/15/18 at 18:30 Albuterol/ Ipratropium (Duoneb) 3 ml Q4H RESP THERAPY PRN HHN SHORTNESS OF BREATH; Start 12/15/18 at 18:30 Hydralazine HCl (Apresoline) 10 mg Q6H PRN IV ELEVATED BLOOD PRESSURE; Start 12/15/18 at 18:30 Nitroglycerin (Nitroglycerin (Sl Tab) 0.4 Mg) 1 tab Q5M PRN SL ANGINA; Start 12/15/18 at 18:30 Miscellaneous Information 1 ea NOTE XX ; Start 12/16/18 at 01:30 Glucose (Glutose) 15 gm Q15M PRN PO DECREASED GLUCOSE; Start 12/16/18 at 01:30 Glucose (Glutose) 22.5 gm Q15M PRN PO DECREASED GLUCOSE; Start 12/16/18 at 01:30 Dextrose (D50w Syringe) 25 ml Q15M PRN IV DECREASED GLUCOSE Last administered on 12/16/18at 06:23; Admin Dose 25 ML; Start 12/16/18 at 01:30 Dextrose (D50w Syringe) 50 ml Q15M PRN IV DECREASED GLUCOSE; Start 12/16/18 at 01:30 Glucagon (Glucagen) 1 mg Q15M PRN IM DECREASED GLUCOSE; Start 12/16/18 at 01:30 Glucose (Glutose) 15 gm Q15M PRN BUCCAL DECREASED GLUCOSE; Start 12/16/18 at 01:30 Morphine Sulfate (morphine) 1 mg Q4H PRN IV .SEVERE PAIN 7-10 Last administered on 12/17/18at 05:30; Admin Dose 1 MG; Start 12/16/18 at 14:30 Diagnostic Test (Pha) (Accu-Chek) 1 ea AC MEALS AND BEDTIME XX Last administered on 12/20/18at 12:40; Admin Dose 1 EA; Start 12/20/18 at 11:10 Insulin Pump (Patient'S Own Insulin Pump) AC MEALS AND BEDTIME SC ; Start 12/20/18 at 21:00 ALEXX HARRIS Dec 21, 2018 11:16
[2018-12-21] MEDS ORDERED: [UNRECOGNIZED DRUG - OTHER] SC (11:46)
[2018-12-21] MEDS ORDERED: INSULIN PUMP SC (11:46)
--- NOTE | 2018-12-21 11:47 | PDOCDIS ---
Discharge Instructions DIAGNOSIS Discharge Diagnosis Acute pancreatitis CONDITION [id number] Patient Condition: [id number] Good HOME CARE INSTRUCTIONS: [id number] Diet Instructions: [id number] Special Diet: [id number] Carbohydrate controlled ACTIVITY: [id number] Activity Restrictions: [id number] No Restrictions FOLLOW UP/APPOINTMENTS Follow-up Plan 1. Continue insulin as previously prescribed. 2. See your primary care doctor in 1-2 weeks. 3. Make an appointment with Dr. Abreu in 2-4 weeks. ILIR DURBIN MD Dec 21, 2018 11:47
--- NOTE | 2018-12-21 16:32 | DS ---
Date/Time of Note Date/Time of Note DATE: 12/21/18 TIME: 16:29 Discharge Summary Admission/Discharge Info Admit Date/Time Dec 15, 2018 at 17:35 Discharge Date/Time Dec 21, 2018 at 13:20 Discharge Diagnosis Acute pancreatitis Patient Condition: Good Consults Dr. Abreu, gastroenterology. Procedures None Hx of Present Illness HISTORY OF PRESENT ILLNESS: A 23-year-old male with past medical history of pancreatitis occurring one time in 2016, type 1 diabetes, using insulin pump who presents with abdominal pain. The patient describes the pain in the left upper quadrant area. It has been going on for the last 4 to 5 days. The patient does admit to alcoholic beverages x2 that he drank 1 week ago and it appears that his pain did appear to occur shortly after he drank the alcohol. No fevers or chills. No nausea or vomiting. He did have one episode of diarrhea, but no constipation. The patient tried to take some Tylenol and Gas-X at home that only gave minimal relief. When he ate food, however, his pain seemed to get worse and it also radiated mildly to the back. No chest pain or shortness of breath. When he came in today, he was found on labs with a lipase elevation of 3963 and his indirect bilirubin is slightly high 1.3, AST is a little high at 103 and ALT was 137, alkaline phosphatase is 160. Rest of his LFTs were normal. The patient stated when his pancreatitis occurred in 2015, he had to stay hospitalized for 4 to 5 days up in [facility]. At that time, it was thought that his pancreatitis was secondary to alcohol use at that time. PAST MEDICAL HISTORY: As stated above. ALLERGIES: NO KNOWN DRUG ALLERGIES. MEDICATIONS AT HOME: The patient does use insulin pump. PAST SURGICAL HISTORY: None. SOCIAL HISTORY: Again, occasional alcohol use. Denies any IV drug abuse or smoking history. FAMILY HISTORY: Noncontributory. Hospital Course The patient was briefly kept NPO; then diet was resumed and advanced uneventfully. Pancreatitis clinically resolved quickly. Hospital course complicated by transient elevation of AST/ALT which peaked at 685/442. The cause of this was unknown. Imaging was negative for stones or duct dilation. Viral hep panel negative, autoimmune hepatitis panel pending at time of discharge (but clinically unlikely). The patient reported taking high doses of liquid tylenol, up to 4gm in one day. But would be unusual for tylenol toxicity to present after more than 48 hours. At time of discharge he was ambulatory, tolerating regular diet, breathing room air. Home Meds Active Scripts [Pt's Own Insulin Pump (Co-Sign] 1 UNIT EA No Conflict Check, 0 UNIT SC AC MEALS AND BEDTIME Prov:ILIR DURBIN MD 12/21/18 Follow-up Plan 1. Continue insulin as previously prescribed. 2. See your primary care doctor in 1-2 weeks. 3. Make an appointment with Dr. Abreu in 2-4 weeks. Primary Care Provider Not On Staff Doctor Time spent on discharge: > 30 minutes Pending Labs Laboratory Tests Test 12/20/18 17:42 12/20/18 20:43 12/21/18 04:33 12/21/18 12:17 Bedside 267 159 201 Glucose mg/dL (70-220) mg/dL (70-220) mg/dL (70-220) White Blood 6.0 Count 10^3/ul (4.8-1 0.8) Red Blood 4.01 Count 10^6/ul (4.70- 6.10) Hemoglobin 12.5 g/dl (14.0-18. 0) Hematocrit 37.4 % (42.0-52.0) Mean 93.3 Corpuscular fl (82.0-101.0 Volume ) Mean 31.2 Corpuscular pg (29.0-33.0) Hemoglobin Mean 33.4 Corpuscular g/dl (32.0-37. Hemoglobin Conc 0) ent Red Cell 13.6 Distribution % (11.5-14.5) Width Platelet Count 253 10^3/UL (140-4 15) Mean Platelet 10.5 Volume fl (7.4-10.4) Immature 0.800 Granulocytes % % (0.001-0.429 ) Neutrophils % 57.4 % (39.0-77.0) Lymphocytes % 25.5 % (15.0-51.0) Monocytes % 9.9 % (0.0-11.0) Eosinophils % 4.7 % (0.0-7.0) Basophils % 1.7 % (0.0-2.0) Nucleated Red 0.0 Blood Cells % /100WBC (0.0-0 .0) Immature 0.050 Granulocytes # 10^3/ul (0.0-0 .031) Neutrophils # 3.4 10^3/ul (1.6-7 .5) Lymphocytes # 1.5 10^3/ul (0.8-2 .9) Monocytes # 0.6 10^3/ul (0.3-0 .9) Eosinophils # 0.3 10^3/ul (0.0-0 .5) Basophils # 0.1 10^3/ul (0.0-0 .1) Nucleated Red 0.0 Blood Cells # 10^3/ul (0.0-0 .0) Sodium Level 142 mmol/L (135-14 4) Potassium 4.0 Level mmol/L (3.5-5. 1) Chloride Level 104 mmol/L (97-110 ) Carbon Dioxide 30 Level mmol/L (21-31) Anion Gap 8 (5-13) Blood Urea 7 mg/dl (7-20) Nitrogen Creatinine 0.55 mg/dl (0.61-1. 24) Est Glomerular > 60 Filtrat mL/min (>60) Rate mL/min Glucose Level 186 mg/dl (70-220) Calcium Level 9.3 mg/dl (8.4-10. 2) Total 0.7 Bilirubin mg/dl (0.2-1.3 ) Direct 0.00 Bilirubin mg/dl (0.00-0. 20) Indirect 0.7 Bilirubin mg/dl (0-1.1) Aspartate Amino 480 Transf (AST/SGO IU/L (15-46) T) Alanine 413 Aminotransferas IU/L (13-69) e (ALT/SGPT) Alkaline 195 Phosphatase IU/L (42-121) Total Protein 6.0 g/dl (6.1-8.1) Albumin 3.3 g/dl (3.3-4.9) ILIR DURBIN MD Dec 21, 2018 16:32
== END 2018-12-21 13:20 | disposition home or self-care (01) | DRG 440 ==
LOC: FTE 12:55 → MS1 17:35
PROVIDERS: ADMIT Hospitalist; ATTEND Internal Medicine
DX: K85.20 Alcohol induced acute pancreatitis without necrosis or infection (principal); E10.8 Type 1 diabetes mellitus with unspecified complications; R74.0 Nonspecific elevation of levels of transaminase and lactic acid dehydrogenase [LDH]; Z96.41 Presence of insulin pump (external) (internal)
CPT/HCPCS: 36415; 74177; 74181; 76705; 80048; 80053; 80061; 80076; 80307; 81003; 82150; 82787; 82962; 83036; 83690; 83735; 84100; 84439; 84443; 85025; 85610; 85730; 86038; 86255; 86376; 86704; 86709; 86803; 87340; J1815; J2270; J7030; J7042; Q9967